=== PATIENT | male | born 1935 | race Caucasian/White ===

== ENCOUNTER → 2019-12-22 15:48 | Outpatient (BNVA) | payer MEDICARE, OTHER, SELFPAY | PROVIDERS: Family Provider Nurse Practitioner; PCP Nurse Practitioner; Visit Provider Nurse Practitioner | DX: E11.65 Type 2 diabetes mellitus with hyperglycemia (principal); M54.5 Low back pain | CPT/HCPCS: 80053; 81003; 83036 ==

== ENCOUNTER → 2019-12-30 11:17 | Outpatient (BNVA) | payer MEDICARE, OTHER, SELFPAY | PROVIDERS: Family Provider Nurse Practitioner; PCP Nurse Practitioner; Visit Provider Nurse Practitioner | DX: E11.65 Type 2 diabetes mellitus with hyperglycemia (principal); F03.90 Unspecified dementia, unspecified severity, without behavioral disturbance, psychotic disturbance, mood disturbance, and anxiety; R10.9 Unspecified abdominal pain; M54.5 Low back pain; M43.26 Fusion of spine, lumbar region; M43.24 Fusion of spine, thoracic region; Z79.4 Long term (current) use of insulin | CPT/HCPCS: 72100; 74018 ==

== ENCOUNTER → 2020-03-16 13:53 | Outpatient (BNVA) | payer MEDICARE, OTHER, SELFPAY | PROVIDERS: Family Provider Nurse Practitioner; PCP Nurse Practitioner; Visit Provider Nurse Practitioner | DX: M25.562 Pain in left knee (principal); E11.65 Type 2 diabetes mellitus with hyperglycemia; M17.12 Unilateral primary osteoarthritis, left knee; M11.262 Other chondrocalcinosis, left knee | CPT/HCPCS: 73562; 80053; 80061; 81000; 82044; 83036 ==

== ENCOUNTER 2020-04-11 14:00 | Emergency (ER) | payer MEDICARE, OTHER, SELFPAY ==
[2020-04-11 14:16] VITALS: BP 166/81; PULSE 61; RESP 18; TEMP 36.6; O2SAT 95; BMI 26.2
--- NOTE | 2020-04-11 14:21 | PC.NURSE ---
Patient reports having family of a million ants in the house . I think they are crawling into my throat and down into my stomach. Patient states these are flying ants.
--- NOTE | 2020-04-11 14:28 | ED_ITS ---
HPI - Male Genitourinary General: Chief complaint: Urogenital-Male Stated complaint: difficulty urinating Time Seen by Provider: 04/11/20 14:23 History of Present Illness: HPI Narrative: Patient complains about increasing problems with urination over the last week or so. Been bad the last 2 days has a hard time getting his urine started it emmanuel when he urinates denies any fever chills bowel problems was seen at their clinic a week ago MD Complaint: dysuria Onset (ago): day(s) Duration: progressively worsening Quality: burning Relieving factors: none Exacerbating factors: urination Associated symptoms: Reports no associated symptoms and dysuria; Deny nausea or vomiting Review of Systems Const: Denies: fever(s), chills or body aches Eyes: Denies: change in vision or blurry vision ENMT: Denies: throat pain or nasal congestion Card: Denies: chest pain or dyspnea on exertion Resp: Denies: dyspnea, productive cough or non-productive cough GI: Denies: abdominal pain, nausea or vomiting : Reports: difficulty urinating, dysuria, urinary urgency and difficulty starting urination Musc: Denies: extremity pain Skin/Breast: Denies: rash Neuro: Denies: headache(s) Psych: Denies: anxiety or depression Jonathan/Lymph: Denies: easy bruising PFSH ED PFSH: Medical History (Updated 03/27/20 @ 13:48 by ENZO Grayson) Anticoagulant long-term use Benign essential hypertension with target blood pressure below 140/90 Chronic dementia Deep vein thrombosis (DVT) History of humerus fracture 08/04/2018 Dr. Rubio, again September 2019 in [place], [place] Surgical History History of cholecystectomy 12/30/17 History of colonoscopy History of corneal transplant 2012 Right Presence of cornea transplant RIGHT EYE: 2011 S/P trigger finger release LEFT RING FINGER 12/03/14 Family History Sister Diabetes Family/Other Dementia Social History Smoking and tobacco status: never smoked Second hand smoke exposure: No Smoking risk assessment/counseling performed?: No Alcohol intake: never Desire information about alcohol rehabilitation?: No Counseling given: No Desire information about substance/drug rehabilitation?: No Counseling given: No Adopted: No Caregiver/support person: No Lives independently: Yes Household members: spouse Housing: House Marital status: Number of children: 1 service: No Current occupational status: retired Current occupational exposures/hazards: No Pets and animals: Yes Pets & animals: dog(s) History of recent travel: No Current gender identity: Female Physical Exam Const: COMMON NORMALS: no acute distress, average body habitus and patient oriented x3 HENMT: COMMON NORMALS: normocephalic HEAD & SCALP: normal to inspection and normocephalic FACE & SINUS: normal facial exam Eye: COMMON NORMALS: conjunctivae normal GENERAL EYE: appearance normal, both eyes and all related structures CONJUNCTIVA: Yes conjunctivae normal Neck/C-Spine: COMMON NORMALS: no JVD Chest: COMMONS NORMALS: normal inspection of the chest Resp: COMMON NORMALS: normal respiratory effort and clear to auscultation bilaterally AUSCULTATION: clear to auscultation bilaterally Cardio: COMMON NORMALS: no JVD, regular rate and regular rhythm RATE: regular rate RHYTHM: regular rhythm GI: COMMON NORMALS: Normal to inspection, nondistended, normoactive bowel sounds present Extremity: COMMON NORMALS: normal to inspection and full ROM Neuro: COMMON NORMALS: patient oriented x3 Course Vital Signs: Vital signs: Vital Signs Temperature 97.9 F 04/11/20 14:16 Pulse Rate 61 04/11/20 14:16 Respiratory Rate 18 04/11/20 14:16 Blood Pressure 166/81 04/11/20 14:16 Pulse Oximetry 95 04/11/20 14:16 Discharge Plan Discharge Prescriptions: No Action Calmoseptine 0.44-20.6 % ointment 1 applic TOPICAL QID PRNRF: 0 docusate sodium [Colace] 100 mg capsule 100 mg PO DAILY RF: 0 mupirocin 2 % ointment kit 1 applic TOPICAL BID RF: 0 metoprolol tartrate 50 mg tablet 50 mg PO BID Qty: 60 RF: 2 triamcinolone acetonide 0.1 % cream 1 applic TOPICAL BID PRN (Reason: itching) Qty: 30 RF: 2 Levemir FlexTouch U-100 Insuln 100 unit/mL (3 mL) insulin pen 55 unit SUBCUT .MORNING Qty: 15 RF: 2 (DME) blood sugar diagnostic [True Metrix Glucose Test Strip] Strip See Rx Instructions .ROUTE .MEDSUPPLY Qty: 100 RF: 5 warfarin [Coumadin] 1 mg tablet 2.5 mg PO .6 DAYS Qty: 75 RF: 0 warfarin [Coumadin] 5 mg tablet 5 mg PO DAILY Qty: 30 RF: 0 Coding Level of Care Code ED Commercial Construction Estimator for Laly Jaramillo
[2020-04-11 14:50] VITALS: PULSE 61; O2SAT 95
[2020-04-11 15:14] LABS: Glucose Urine UA Norm (Normal); Protein Urine Neg (Negative); Specific Gravity, Urine 1.025 (1.005-1.030); Urine Appearance SL Hazy (CLEAR); Urine Color Yellow (Yellow); pH Urine 5 (5-7)
[2020-04-11 15:15] LABS: Add Urine Microscopic? YES; Bilirubin Urine Neg (NEGATIVE); Blood Urine 2+ (Negative); Ketones Urine Negative (Negative); Leukocyte Esterase Urine Negative (Negative); Nitrate Urine Negative (Negative); Urobilinogen Urine Norm (Negative)
[2020-04-11 15:26] LABS: Squamous Epithelial Cell Urine 0-4 (0-5); WBC Urine 15-25 /hpf (0-5)
[2020-04-11 15:27] LABS: Add Urine Culture? Yes; Bacteria Urine 1+
[2020-04-11 15:35] VITALS: BP 155/80; PULSE 66; RESP 18; O2SAT 95
== END 2020-04-11 15:35 | disposition home or self-care (01) ==
PROVIDERS: Emergency Provider Nurse Practitioner Family; PCP Nurse Practitioner
DX: R39.198 Other difficulties with micturition (principal); Z79.01 Long term (current) use of anticoagulants; Z79.4 Long term (current) use of insulin; I10 Essential (primary) hypertension; F03.90 Unspecified dementia, unspecified severity, without behavioral disturbance, psychotic disturbance, mood disturbance, and anxiety
CPT/HCPCS: 12345; 51701; 81001; 87086; 99282; 99283

== ENCOUNTER → 2020-04-15 12:07 | Outpatient (BNVA) | payer MEDICARE, OTHER, SELFPAY | PROVIDERS: PCP Nurse Practitioner; Visit Provider Nurse Practitioner | DX: R39.11 Hesitancy of micturition (principal); I10 Essential (primary) hypertension | CPT/HCPCS: 81000 ==

== ENCOUNTER → 2020-06-10 11:36 | Outpatient (BNVA) | payer MEDICARE, OTHER, SELFPAY | PROVIDERS: PCP Nurse Practitioner; Visit Provider Nurse Practitioner | DX: E11.65 Type 2 diabetes mellitus with hyperglycemia (principal); Z79.01 Long term (current) use of anticoagulants; I10 Essential (primary) hypertension; R39.11 Hesitancy of micturition; B35.3 Tinea pedis | CPT/HCPCS: 80053; 80061; 81003; 83036; 85025 ==

== ENCOUNTER 2020-07-19 09:19 | Emergency (ER) | payer MEDICARE, OTHER, SELFPAY ==
[2020-07-19 09:31] VITALS: BP 119/64; PULSE 59; RESP 16; TEMP 36.6; O2SAT 99; BMI 26.6
--- NOTE | 2020-07-19 09:55 | ED_ITS ---
HPI - Male Genitourinary General: Chief complaint: Urogenital-Male Stated complaint: urination issues Time Seen by Provider: 07/19/20 09:34 Source: patient Mode of arrival: ambulatory Limitations: no limitations History of Present Illness: HPI Narrative: Patient is an 84-year-old male who presents to ED today with a complaint of difficulty with urination. Patient tells me it is becoming increasingly difficult to urinate. He states starting around 11 PM yesterday he began feeling a strong urge to urinate however when he would go to the restroom, he would just dribble. Patient states he had to use the restroom 8 or 9 times to feel like he got his bladder empty. He has been noticing increased nocturnal urination. Patient was seen for this recently by his PCP who placed him on Flomax. Patient has never had any form of urological evaluation. states she believes patient was diagnosed with an enlarged prostate at some point. Patient does complain of slight dysuria. He is not having any abdominal pain, flank pain currently. No fevers. MD Complaint: other (urinary retention) Associated symptoms: Reports dysuria; Deny hematuria, nausea or vomiting Review of Systems Const: Denies: fever(s), chills, body aches, fatigue or malaise Card: Denies: chest pain Resp: Denies: dyspnea GI: Denies: abdominal pain, nausea, vomiting or diarrhea : Reports: difficulty urinating, dysuria, urinary frequency, urinary urgency, urinary dribbling, difficulty starting urination, change in urine stream (dribbling) and nocturia; Denies: flank pain, oliguria, hematuria, genital pain, genital lesions, penile discharge, testicular pain, testicular mass or scrotal swelling Musc: Denies: neck pain or back pain Skin/Breast: Denies: rash Neuro: Denies: headache(s), numbness in extremities, weakness in extremities or sensory changes PFSH ED PFSH: Medical History (Updated 07/19/20 @ 11:44 by EMI Brewster) Anticoagulant long-term use Benign essential hypertension with target blood pressure below 140/90 Chronic dementia Deep vein thrombosis (DVT) History of humerus fracture 08/04/2018 Dr. Rubio, again September 2019 in [place], [place] Surgical History History of cholecystectomy 12/30/17 History of colonoscopy History of corneal transplant 2012 Right Presence of cornea transplant RIGHT EYE: 2011 S/P trigger finger release LEFT RING FINGER 12/03/14 Family History Sister Diabetes Family/Other Dementia Social History Smoking and tobacco status: never smoked Second hand smoke exposure: No Smoking risk assessment/counseling performed?: No Alcohol intake: never Desire information about alcohol rehabilitation?: No Counseling given: No Desire information about substance/drug rehabilitation?: No Counseling given: No Adopted: No Caregiver/support person: No Lives independently: Yes Household members: spouse Housing: House Marital status: Number of children: 1 service: No Current occupational status: retired Current occupational exposures/hazards: No Pets and animals: Yes Pets & animals: dog(s) History of recent travel: No Current gender identity: Female Physical Exam Const: COMMON NORMALS: no acute distress, average body habitus, patient oriented x3, no limitations, healthy appearing, alert and well nourished GI: COMMON NORMALS: Normal to inspection, nondistended, normoactive bowel sounds present, Soft to palpation, non-tender, No hepatosplenomegaly present and no masses PALPATION: Yes Soft to palpation and Yes No hepatosplenomegaly present : COMMON NORMALS: Yes no CVA tenderness BLADDER/KIDNEY EXAM: Yes no CVA tenderness PENIS: normal penis MEATUS: stenotic SCROTUM: Yes testes descended bilaterally TESTES: Yes testicular lie normal Back/Pelvis: COMMON NORMALS: no CVA tenderness Extremity: COMMON NORMALS: capillary refill normal, no clubbing, cyanosis or edema, no calf tenderness and no pedal edema Neuro: COMMON NORMALS: patient oriented x3 SENSORIUM/ORIENTATION: Yes alert Skin: COMMON NORMALS: no rashes or lesions noted GENERAL SKIN EXAM: no rashes or lesions noted Course ED course: 350-400cc urine noted via bladder scanner Vital Signs: Vital signs: Vital Signs Temperature 97.8 F 07/19/20 09:31 Pulse Rate 59 L 07/19/20 11:53 Respiratory Rate 16 07/19/20 11:53 Blood Pressure 127/74 07/19/20 11:53 Pulse Oximetry 98 07/19/20 11:53 MDM - Male MDM Narrative: Medical decision making narrative: RN could only get extremely small catheter through pts meatus to drain urine raising the suspicion for urethral meatus stenosis/stricture as a cause of his difficulty with urination; pt adamantly refuses to go home with the connolly; he is able to urinate on his own-it just takes him several times to feel like he is emptying; symptoms to prompt a return to ED evaluation were discussed; CM is working on getting him set up with an appointment with Dr. Liang Lab Data: Labs: Lab Results 07/19/20 07/19/20 07/19/20 Range/Units 10:44 10:44 11:06 WBC 10.4 H (4.0-10.0) 10^3/ uL RBC 4.72 (4.1-5.3) 10^6/u L Hgb 14.8 (11.7-16.6) g/dL Hct 44.5 (42.0-52.0) % MCV 94.3 H (80-94) fL MCH 31.4 (28.0-34.0) pg MCHC 33.3 (30.0-36.0) g/dL RDW 12.8 (12.1-15.1) % Plt Count 199 (130-400) 10^3/c mm MPV 9.8 (7.4-10.4) fL Neut % (Auto) 73.4 % Lymph % (Auto) 14.2 % Power % (Auto) 9.0 % Eos % (Auto) 2.5 % Baso % (Auto) 0.4 % Neut # (Auto) 7.66 (1.8-7.7) 10^3/u L Lymph # (Auto) 1.5 (0.8-4.8) 10^3/u L Power # (Auto) 0.9 (0.2-0.9) 10^3/u L Eos # (Auto) 0.3 (0.0-0.8) 10^3/u L Baso # (Auto) 0.0 (0.0-0.1) 10^3/u L Nucleated RBC % (a uto) 0 % Nucleated RBCs # 0.0 /100WBC Sodium 140 (136-145) mmol/L Potassium 4.7 (3.5-5.1) mmol/L Chloride 108 H (98-107) mmol/L Carbon Dioxide 27 (22-29) mmol/L Anion Gap 9.7 (5-19) BUN 19 (8-23) mg/dL Creatinine 0.9 (0.7-1.2) mg/dL GFR Calculation Not Reportable Glucose 152 H (65-115) mg/dL Calculated Osmolal ity 289 (285-295) mOsm/k g Calcium 8.5 (8.5-10.5) mg/dL Total Bilirubin 1.1 (0.15-1.2) mg/dL AST 14 (0-40) U/L ALT 17 (0-41) U/L Alkaline Phosphata se 89 (40-130) IU/L Total Protein 6.3 L (6.6-8.7) g/dL Albumin 3.4 L (3.5-5.2) g/dL Globulin 2.9 (1.3-4.6) g/dL Urine Color Yellow (Yellow) Urine Appearance Sl hazy (CLEAR) Urine pH 5 (5-7) Ur Specific Gravit y 1.020 (1.005-1.030) Urine Protein Neg (Negative) Urine Glucose (UA) Norm (Normal) Urine Ketones Negative (Negative) Urine Blood Neg (Negative) Urine Nitrate Negative (Negative) Urine Bilirubin Neg (NEGATIVE) Urine Urobilinogen Neg (Negative) mg/dL Ur Leukocyte Dorene ase Trace H (Negative) Urine RBC 0-4 H (0-2) /hpf Urine WBC 5-10 H (0-5) /hpf Ur Squamous Epith Cells 0-4 H (0-5) Amorphous Sediment 2+ Urine Bacteria Trace (NONE) Hyaline Casts 0-4 H Urine Mucus 1+ Discharge Plan Discharge Patient Disposition: Home Clinical Impression: Difficulty urinating Condition: Stable Prescriptions: No Action Calmoseptine 0.44-20.6 % ointment 1 applic TOPICAL QID PRNRF: 0 ciprofloxacin HCl [Cipro] 250 mg tablet 250 mg PO BID Qty: 20 RF: 0 Lamisil (Aerosol) 1 % aerosol,spray 1 spray TOPICAL DAILY Qty: 125 RF: 0 docusate sodium [Colace] 100 mg capsule 100 mg PO DAILY RF: 0 mupirocin 2 % ointment kit 1 applic TOPICAL BID RF: 0 terbinafine HCl 250 mg tablet 250 mg PO DAILY Qty: 14 RF: 0 Levemir FlexTouch U-100 Insuln 100 unit/mL (3 mL) insulin pen See Rx Instructions SUBCUT BID Qty: 15 RF: 2 metoprolol tartrate 50 mg tablet 25 mg PO BID Qty: 30 RF: 2 Flomax 0.4 mg capsule 0.4 mg PO DAILY Qty: 30 RF: 2 warfarin [Coumadin] 5 mg tablet 5 mg PO DAILY Qty: 30 RF: 0 warfarin [Coumadin] 1 mg tablet 2.5 mg PO .6 DAYS Qty: 75 RF: 0 triamcinolone acetonide 0.1 % cream 1 applic TOPICAL BID PRN (Reason: itching) Qty: 30 RF: 2 (DME) blood sugar diagnostic [True Metrix Glucose Test Strip] Strip See Rx Instructions .ROUTE .MEDSUPPLY Qty: 100 RF: 5 Discharge Orders: Discharge Order (Routine); Ordered 07/19/20 Ordered By: Zulma Crawford Referrals: Vasile Gentile FNP-C [Primary Care Provider] - Kenton Liang MD [Physician] - Activity Restrictions/Additional Instructions: You have refused to go home with a Connolly catheter today. You will need to return to the emergency department if you are no longer able to void/urinate on your own or if you begin having severe lower abdominal pain/pressure, or fevers greater than 100.4. As discussed we will get you set up with an appointment to see Dr. Liang/urology for further evaluation. Discharge Date/Time: 07/19/20 11:53 Coding Level of Care Code ED International Editorial Producer for Kettyg Fwd Exam Detailed
[2020-07-19 10:59] LABS: Basophils % 0.4 %; Eosinophils # 0.3 10^3/uL (0.0-0.8); Eosinophils % 2.5 %; Hematocrit 44.5 % (42.0-52.0); Hemoglobin 14.8 g/dL (11.7-16.6); Lymphocytes # 1.5 10^3/uL (0.8-4.8); Lymphocytes % 14.2 %; Mean Corpuscular HGB Conc 33.3 g/dL (30.0-36.0); Mean Corpuscular Hemoglobin 31.4 pg (28.0-34.0); Mean Corpuscular Volume 94.3 fL (80-94); Mean Platelet Volume 9.8 fL (7.4-10.4); Monocytes # 0.9 10^3/uL (0.2-0.9); Neutrophils # 7.66 10^3/uL (1.8-7.7); Neutrophils % 73.4 %; Nucleated Red Blood Cells % 0 %; Platelet Count 199 10^3/cmm (130-400); Red Blood Count 4.72 10^6/uL (4.1-5.3); Red Cell Distribution Width 12.8 % (12.1-15.1); White Blood Count 10.4 10^3/uL (4.0-10.0)
[2020-07-19 11:19] LABS: Alanine Aminotransferase 17 U/L (0-41); Albumin Level 3.4 g/dL (3.5-5.2); Alkaline Phosphatase 89 IU/L (40-130); Anion Gap 9.7 (5-19); Aspartate Amino Transferase 14 U/L (0-40); Blood Urea Nitrogen 19 mg/dL (8-23); Calcium 8.5 mg/dL (8.5-10.5); Carbon Dioxide 27 mmol/L (22-29); Chloride 108 mmol/L (98-107); Creatinine Clr Calc Pharmacy 66.0415; Globulin 2.9 g/dL (1.3-4.6); Glucose 152 mg/dL (65-115); Osmolality Calculated 289 mOsm/kg (285-295); Potassium 4.7 mmol/L (3.5-5.1); Sodium 140 mmol/L (136-145); Total Bilirubin 1.1 mg/dL (0.15-1.2); Total Protein 6.3 g/dL (6.6-8.7)
[2020-07-19 11:30] LABS: Add Urine Culture? No; Add Urine Microscopic? YES; Amorphous Sediment Urine 2+; Bacteria Urine TRACE; Bilirubin Urine Neg (NEGATIVE); Blood Urine Neg (Negative); Glucose Urine UA Norm (Normal); Hyaline Casts Urine 0-4; Ketones Urine Negative (Negative); Leukocyte Esterase Urine Trace (Negative); Mucus Urine 1+; Nitrate Urine Negative (Negative); Protein Urine Neg (Negative); RBC Urine 0-4 /hpf (0-2); Squamous Epithelial Cell Urine 0-4 (0-5); Urine Appearance SL Hazy (CLEAR); Urine Color Yellow (Yellow); Urobilinogen Urine Neg (Negative); pH Urine 5 (5-7)
--- NOTE | 2020-07-19 11:50 | DCPLANNER ---
manager bench had message to schedule a follow up appointment for patient with Dr. Liang. manager bench called the office of Dr. Liang, spoke with Radha. manager bench gave clinic patients information, pillowcase cutter was told that patients information would be printed and reviewed. Clinic will call patient with appointment information.
[2020-07-19 11:53] VITALS: BP 127/74; PULSE 59; RESP 16; O2SAT 98
== END 2020-07-19 11:53 | disposition home or self-care (01) ==
PROVIDERS: Emergency Provider Physician Assistant; PCP Nurse Practitioner
DX: R39.198 Other difficulties with micturition (principal); Z79.01 Long term (current) use of anticoagulants; Z79.4 Long term (current) use of insulin; I10 Essential (primary) hypertension
CPT/HCPCS: 12345; 36415; 51702; 80053; 81001; 85025; 99283

== ENCOUNTER → 2020-07-29 12:46 | Outpatient (BNVA) | payer MEDICARE, OTHER, SELFPAY | PROVIDERS: PCP Nurse Practitioner; Visit Provider Urology | DX: N47.1 Phimosis (principal) | CPT/HCPCS: 88305 ==

== ENCOUNTER → 2020-08-30 11:11 | Outpatient (BNVA) | payer MEDICARE, OTHER, SELFPAY | PROVIDERS: PCP Nurse Practitioner; Visit Provider Nurse Practitioner | DX: E11.65 Type 2 diabetes mellitus with hyperglycemia (principal); Z79.01 Long term (current) use of anticoagulants; F03.91 Unspecified dementia, unspecified severity, with behavioral disturbance; I10 Essential (primary) hypertension | CPT/HCPCS: 80053; 80061; 83036; 84443 ==

== ENCOUNTER → 2020-11-29 13:45 | Outpatient (BNVA) | payer MEDICARE, OTHER, SELFPAY | PROVIDERS: PCP Nurse Practitioner; Visit Provider Nurse Practitioner | DX: E11.65 Type 2 diabetes mellitus with hyperglycemia (principal); I10 Essential (primary) hypertension; F03.91 Unspecified dementia, unspecified severity, with behavioral disturbance; R39.11 Hesitancy of micturition; Z79.01 Long term (current) use of anticoagulants | CPT/HCPCS: 80053; 83036 ==

== ENCOUNTER → 2021-02-17 10:21 | Outpatient (BNVA) | payer MEDICARE, OTHER, SELFPAY | PROVIDERS: PCP Nurse Practitioner; Visit Provider Nurse Practitioner | DX: E11.65 Type 2 diabetes mellitus with hyperglycemia (principal); Z79.01 Long term (current) use of anticoagulants; F03.91 Unspecified dementia, unspecified severity, with behavioral disturbance; I10 Essential (primary) hypertension; R39.11 Hesitancy of micturition; E11.42 Type 2 diabetes mellitus with diabetic polyneuropathy | CPT/HCPCS: 80053; 80061; 82043; 82607; 83036; 84443; 85025 ==

== ENCOUNTER → 2021-05-15 11:04 | Outpatient (BNVA) | payer MEDICARE, OTHER, SELFPAY | PROVIDERS: PCP Nurse Practitioner; Visit Provider Nurse Practitioner | DX: F03.91 Unspecified dementia, unspecified severity, with behavioral disturbance (principal); I10 Essential (primary) hypertension; R39.11 Hesitancy of micturition; E11.65 Type 2 diabetes mellitus with hyperglycemia; E55.9 Vitamin D deficiency, unspecified; Z79.01 Long term (current) use of anticoagulants; R82.90 Unspecified abnormal findings in urine | CPT/HCPCS: 80053; 80061; 81000; 82043; 82306; 82607; 83036; 84443; 85025; 87086 ==

== ENCOUNTER → 2021-06-07 14:07 | Outpatient (BNVA) | payer MEDICARE, OTHER, SELFPAY | PROVIDERS: PCP Nurse Practitioner; Visit Provider Nurse Practitioner | DX: E11.65 Type 2 diabetes mellitus with hyperglycemia (principal); R39.11 Hesitancy of micturition | CPT/HCPCS: 81000 ==

== ENCOUNTER → 2021-06-08 14:22 | Outpatient (BNVA) | payer MEDICARE, OTHER, SELFPAY | PROVIDERS: PCP Nurse Practitioner; Visit Provider Nurse Practitioner | DX: R41.0 Disorientation, unspecified (principal); F03.91 Unspecified dementia, unspecified severity, with behavioral disturbance; G47.9 Sleep disorder, unspecified | CPT/HCPCS: 81000 ==

== ENCOUNTER 2021-08-01 08:57 | Emergency (ER) | payer MEDICARE, OTHER, SELFPAY ==
[2021-08-01 10:26] VITALS: BP 95/61; PULSE 108; RESP 18; TEMP 36.6; O2SAT 96; BMI 27.3
[2021-08-01 11:02] VITALS: BP 118/78; RESP 16
--- NOTE | 2021-08-01 11:23 | PC.NURSE ---
Assumed care of this patient at 1105.
--- NOTE | 2021-08-01 12:35 | CT_ITS ---
WS: [id number] CT CHEST, ABDOMEN AND PELVIS WITH CONTRAST. HISTORY: large R ecchymosis/distention; recent fall/trauma TECHNIQUE: Contiguous 5 mm axial imaging performed through the chest, abdomen and pelvis with IV cont rast, oral contrast has not been provided. Coronal and sagittal reformats chest. Coronal and sagittal reformats through the abdomen and pelvis. All CT scans at [facility] use at least one of the se dose optimization techniques: automated exposure control; mA and/or kV adjustment per patient size (includes targeted exams where dose is matched to clinical indication); or iterative reconstruction. CONTRAST: Visipaque 320; 95 mL IV. DLP: 1730.24 mGy.cm COMPARISON: Chest CT 05/04/[address]: Noncalcified 5 mm nodule at the lingula is stable. Additional stable nodules in the LEFT lo wer lung field. No pneumothorax or pulmonary contusion. No pleural effusion. Mild atherosclerosis ao rta. Normal size pulmonary artery. Heart is normal. Moderate coronary artery calcifications. No adeno javed. Bones are osteopenic. Age-indeterminate rib fractures are noted on the RIGHT. These appear to be remote rib fractures. Abdomen CT: Liver and spleen and pancreas are intact. Pancreatic atrophy is moderate. Prior cholecyst ectomy. No adrenal mass. Large complex cyst in the RIGHT kidney. Partial calcification is noted withi n the wall of the cyst measuring up to 6 cm. No renal obstruction. Mild atherosclerosis aorta. No ret roperitoneal or peritoneal hematoma. There is a large soft tissue hematoma centered along the RIGHT l ateral abdominal wall extending into the pelvis. Hematoma measures 9.0 x 5.0 cm there is adjacent sof t tissue stranding extending above and below the mean component of the hematoma. Pelvic CT: No free fluid or adenopathy. Prior RIGHT hip ORIF. No new acute fracture is identified. No acute appearing lumbar fracture. CT/CT chest abd pel w con* IMPRESSION: 1. Large acute RIGHT lateral abdominal wall hematoma. 2. No visceral organ injury. No intraperitoneal or retroperitoneal hematoma or fluid. 3. No pneumothorax. 4. Age-indeterminate but likely remote right-sided rib fractures.
--- NOTE | 2021-08-01 12:35 | CT_ITS ---
WS: [id number] CT LUMBAR SPINE TECHNIQUE: Noncontrast CT of the lumbar spine with coronal and sagittal reformatted images. CLINICAL INFORMATION: trauma COMPARISON: None. DLP: 1878.[address] scans at [facility] use at least one of these dose optimization techniques: automated e xposure control; mA and/or kV adjustment per patient size (includes targeted exams where dose is matc hed to clinical indication); or iterative reconstruction. FINDINGS: Mild lumbar curve. No acute compression. Moderate spondylitic changes. Disc space narrowing worse at L5-S1. Hypertrophic changes sacroiliac joints. No visualized fractures. Partially visualized peripher ally calcified right renal cyst. Normal adrenal glands. L1-L2: Normal. L2-L3: Mild disc bulging and osteophytic ridging. Mild central canal stenosis. Mild left greater than right foraminal narrowing. Moderate facet arthropathy with ligamentum flavum hypertrophy. L3-L4: Mild disc bulging with osteophytic ridging. Mild central canal stenosis. Mild right greater th an left foraminal narrowing with moderate facet arthropathy and ligamentum flavum hypertrophy. L4-L5: Mild disc bulging with moderate central canal stenosis. Moderate facet arthropathy with ligame ntum flavum hypertrophy. Mild right foraminal narrowing. L5-S1: Mild disc osteophyte complex with endplate ridging. Mild central canal stenosis. Slight imping ement traversing S1 nerve roots. Tiny shallow central protrusion. Mild to moderate bilateral foramina l narrowing. Moderate facet arthropathy. Visualized pelvic bony structures: Normal. Paravertebral soft tissues: Normal. CT/CT lumbar spine wo con* [id number] IMPRESSION: 1. Mild lumbar curve. Moderate spondylitic changes. No acute fractures. 2. Mild ankylosis lower thoracic spine. 3. Mild to moderate central canal stenosis L2-L3 L3-L4 and L4-L5, worse L4-5. 4. Mild to moderate bony foraminal narrowing described above.
--- NOTE | 2021-08-01 12:35 | CT_ITS ---
WS: [id number] CT THORACIC SPINE TECHNIQUE: Noncontrast CT of the thoracic spine with coronal and sagittal reformatted images. CLINICAL INFORMATION: trauma COMPARISON: None. DLP: 2841.[address] scans at [facility] use at least one of these dose optimization techniques: automated e xposure control; mA and/or kV adjustment per patient size (includes targeted exams where dose is matc hed to clinical indication); or iterative reconstruction. FINDINGS: Moderate thoracic kyphosis. Hypertrophic changes thoracic spine. Thoracic ankylosis. No acute appeari ng compression fractures. Moderate facet arthropathy lower thoracic spine. No high-grade central cailin l stenosis. Partially calcified right renal cyst measuring 5.1 x 4.8 cm. Adrenal glands are normal. Cholecystecto my clips. Bibasilar atelectasis. A few partially visualized noncalcified nodules in the left upper lo be and left lower lobe measuring 5 to 6 mm. Fibrosis in the lung apices. Small esophageal hiatal priscila ia. Adrenal glands are normal. Coronary calcification. CT/CT thoracic spin wo con* [id number] IMPRESSION: 1. Moderate thoracic kyphosis with ankylosis. Mild thoracic curve. 2. Moderate spondylitic changes. Anterior hypertrophic changes thoracic spine. 3. No acute fractures.
--- NOTE | 2021-08-01 12:36 | ED_ITS ---
Documented by User: EMI Brewster 08/01/21 14:50 HPI - Fall General: Chief Complaint: Fall Stated Complaint: laceration on back Time Seen by Provider: 08/01/21 10:58 Source: patient and family () Mode of arrival: wheelchair Limitations: no limitations History of Present Illness: HPI Narrative: Patient is a nice 85-year-old male who presents to ED today following several falls that have occurred over the past week. Patient and states that he often falls secondary to imbalance. He is supposed to be walking with assistance at all times. states he fell once last week and twice on Saturday. She states one of his falls on Saturday he struck his right side on a metal trash can and sustained a laceration/abrasion. States area has bruised significantly. Patient is not having any complaints of palpitations, chest pain, shortness of breath, difficulty breathing. Patient is on warfarin. Last INR was checked on Saturday and was 3.0. MD complaint: fall Onset (ago): day(s) Fall from: standing Fall witnessed: yes, by family Place fall occurred: home Loss of consciousness: None Prolonged down time: no Symptoms prior to fall: none Context: other (lost balance ) Associated symptoms-after fall: Reports abdominal pain (R side abdomen); Denies chest pain, hematuria, lightheadedness or neck pain Review of Systems Const: Denies: fever(s), chills, body aches, fatigue or malaise Eyes: Denies: change in vision Card: Denies: chest pain, palpitations, irregular heart rhythm, edema, lightheadedness, syncope, pre-syncope or dyspnea on exertion Resp: Denies: dyspnea GI: Reports: abdominal pain (R side abdomen); Denies: vomiting or diarrhea : Denies: flank pain, dysuria or hematuria Musc: Denies: neck pain, back pain, extremity pain, extremity swelling, joint pain or joint swelling PFS ED PFSH: Medical History (Updated 08/01/21 @ 14:47 by EMI Brewster) Anticoagulant long-term use Benign essential hypertension with target blood pressure below 140/90 Deep vein thrombosis (DVT) History of humerus fracture 08/04/2018 Dr. Rubio, again September [address] [facility] Surgical History History of cholecystectomy 12/30/17 History of circumcision July 2020 History of colonoscopy History of corneal transplant 2011 Right Presence of cornea transplant RIGHT EYE: 2011 S/P trigger finger release LEFT RING FINGER 12/03/14 Family History Sister Diabetes Family/Other Dementia Social History Smoking and tobacco status: never smoked Second hand smoke exposure: No Smoking risk assessment/counseling performed?: No Alcohol intake: never Desire information about alcohol rehabilitation?: No Counseling given: No Desire information about substance/drug rehabilitation?: No Counseling given: No Adopted: No Caregiver/support person: No Lives independently: Yes Household members: spouse Housing: House Marital status: Number of children: 1 service: No Current occupational status: retired Current occupational exposures/hazards: No Pets and animals: Yes Pets & animals: dog(s) History of recent travel: No Current gender identity: Female Physical Exam Const: COMMON NORMALS: no acute distress, average body habitus, patient oriented x3, no limitations, healthy appearing, alert and well nourished GENERAL APPEARANCE: cooperative ORIENTATION/CONSCIOUSNESS: Yes awake, Yes oriented to person, Yes oriented to place and Yes oriented to time HENMT: COMMON NORMALS: normocephalic and atraumatic HEAD & SCALP: normal to inspection, normocephalic and atraumatic Neck/C-Spine: COMMON NORMALS: full ROM CERVICAL SPINE: No pain with cervical ROM and No Cervical spine tenderness Resp: COMMON NORMALS: normal respiratory effort and clear to auscultation bilaterally AUSCULTATION: clear to auscultation bilaterally Cardio: COMMON NORMALS: regular rate and regular rhythm RATE: regular rate RHYTHM: regular rhythm GI: COMMON NORMALS: No hepatosplenomegaly present INSPECTION: Yes abdominal wall ecchymosis AUSCULTATION: Yes normoactive bowel sounds PALPATION: Yes Firmness to palpation present (GI) (on R lateral abdomen) and Yes No hepatosplenomegaly present OTHER: patient has strikingly significant ecchymosis to R lateral abdomen; there is an area directly under his abrasion that feels firm/indurated and most likely associated with underlying hematoma; he has small area to L lower abdomen that has old ecchymosis from diabetic sq injections : COMMON NORMALS: Yes no CVA tenderness BLADDER/KIDNEY EXAM: Yes no CVA tenderness Back/Pelvis: COMMON NORMALS: no CVA tenderness THORACIC SPINE/UPPER BACK: Yes paraspinal muscle tenderness Thoracic paraspinal muscle tenderness: right LUMBAR SPINE/LOWER BACK: Yes lumbar spinal tenderness Lumbar spinal tenderness location: L3 and L4 and Yes paraspinal muscle tenderness Lumbar paraspinal muscle tenderness: right PELVIS: Yes buttocks normal SACROILIAC JOINTS: Yes SI joints normal Extremity: COMMON NORMALS: normal to inspection and full ROM GENERAL: Yes normal exam except as noted Neuro: RICK COMA SCALE: document GCS findings Rick coma scale eye opening: Spontaneous [place] coma scale verbal response: Orientated Rick coma scale motor response: Obey commands [place] coma scale total score: 15 COMMON NORMALS: patient oriented x3, CN's II-XII intact bilaterally, moves all extremities, no focal motor deficits, no sensory deficits noted and gait normal SENSORIUM/ORIENTATION: Yes alert, Yes oriented to person, Yes oriented to place and Yes oriented to time Skin: NARRATIVE SKIN EXAM: see abdomen for pertinent skin findings; abdominal abrasion; no laceration noted Course Vital Signs: Vital signs: Vital Signs Temperature 97.9 F 08/01/21 10:26 Pulse Rate 81 08/01/21 15:02 Respiratory Rate 16 08/01/21 13:49 Blood Pressure 160/88 08/01/21 15:02 Pulse Oximetry 100 08/01/21 15:02 MDM - Fall MDM Narrative: Medical decision making narrative: Patient has a very large 9 x 5 cm abdominal wall hematoma. His vital signs are stable. He has a normal hemoglobin. INR is therapeutic. No evidence for active bleeding. Spoke to Dr. Carcamo who feels patient is stable for discharge. Strict return to ED precautions given. He has appointment with PCP in the next 1-2 weeks for follow up. Needs to return to ED sooner for any further complaints Lab Data: Labs: Lab Results 08/01/21 08/01/21 08/01/21 Range/Units 11:18 11:18 11:18 WBC 12.6 H (4.0-10.0) 10^3/ uL RBC 4.33 (4.1-5.3) 10^6/u L Hgb 13.3 (11.7-16.6) g/dL Hct 40.5 L (42.0-52.0) % MCV 93.5 (80-94) fl MCH 30.7 (28.0-34.0) pg MCHC 32.8 (30.0-36.0) g/dL RDW 13.1 (12.1-15.1) % Plt Count 248 (130-400) 10^3/c mm MPV 10.6 H (7.4-10.4) fL Neut % (Auto) 73.2 % Lymph % (Auto) 13.0 % [place] % (Auto) 10.3 % Eos % (Auto) 2.6 % Baso % (Auto) 0.3 % Neut # (Auto) 9.20 H (1.8-7.7) 10^3/u L Lymph # (Auto) 1.6 (0.8-4.8) 10^3/u L [place] # (Auto) 1.3 H (0.2-0.9) 10^3/u L Eos # (Auto) 0.3 (0.0-0.8) 10^3/u L Baso # (Auto) 0.0 (0.0-0.1) 10^3/u L Nucleated RBC % (a uto) 0 % Nucleated RBCs # 0.0 /100WBC PT 27.30 H (12.1-14.9) SECO NDS INR 2.48 H (0.8-1.2) APTT 41.0 H (23.9-36.7) SECO NDS Sodium 143 (136-145) mmol/L Potassium 4.0 (3.5-5.1) mmol/L Chloride 108 H (98-107) mmol/L Carbon Dioxide 26 (22-29) mmol/L Anion Gap 13.0 (5-19) BUN 14 (8-23) mg/dL Creatinine 0.7 (0.7-1.2) mg/dL GFR Calculation Not Reportable Glucose 103 (65-115) mg/dL Calculated Osmolal ity 297 H (285-295) mOsm/k g Calcium 8.5 (8.5-10.5) mg/dL Total Bilirubin 1.5 H (0.15-1.2) mg/dL AST 16 (0-40) U/L ALT 11 (0-41) U/L Alkaline Phosphata se 110 (40-130) IU/L Total Protein 6.2 L (6.6-8.7) g/dL Albumin 3.3 L (3.5-5.2) g/dL Globulin 2.9 (1.3-4.6) g/dL Imaging Data^: CT lumbar: Radiologist's impression: [facility] [address] [place] [address] CT Scan Report Signed Patient: Malcom Sams Unit #: [id number] : 1935 Age/Sex: 85 / M ADM Date: 08/01/21 Loc: ER Room/Bed: Attending Dr: Ordering Provider/Ordering MD: Zulma Crawford Date of Service: 08/01/21 Procedure(s): CT lumbar spine wo con* [id number] Accession Number(s): [id number] Report Number: [id number] WS: [id number] CT LUMBAR SPINE TECHNIQUE: Noncontrast CT of the lumbar spine with coronal and sagittal reformatted images. CLINICAL INFORMATION: trauma COMPARISON: None. DLP: 1878.[address] scans at [facility] use at least one of these dose optimization techniques: automated exposure control; mA and/or kV adjustment per patient size (includes targeted exams where dose is matched to clinical indication); or iterative reconstruction. FINDINGS: Mild lumbar curve. No acute compression. Moderate spondylitic changes. Disc space narrowing worse at L5-S1. Hypertrophic changes sacroiliac joints. No visualized fractures. Partially visualized peripherally calcified right renal cyst. Normal adrenal glands. L1-L2: Normal. L2-L3: Mild disc bulging and osteophytic ridging. Mild central canal stenosis. Mild left greater than right foraminal narrowing. Moderate facet arthropathy with ligamentum flavum hypertrophy. L3-L4: Mild disc bulging with osteophytic ridging. Mild central canal stenosis. Mild right greater than left foraminal narrowing with moderate facet arthropathy and ligamentum flavum hypertrophy. L4-L5: Mild disc bulging with moderate central canal stenosis. Moderate facet arthropathy with ligamentum flavum hypertrophy. Mild right foraminal narrowing. L5-S1: Mild disc osteophyte complex with endplate ridging. Mild central canal stenosis. Slight impingement traversing S1 nerve roots. Tiny shallow central protrusion. Mild to moderate bilateral foraminal narrowing. Moderate facet arthropathy. Visualized pelvic bony structures: Normal. Paravertebral soft tissues: Normal. CT/CT lumbar spine wo con* [id number] IMPRESSION: 1. Mild lumbar curve. Moderate spondylitic changes. No acute fractures. 2. Mild ankylosis lower thoracic spine. 3. Mild to moderate central canal stenosis L2-L3 L3-L4 and L4-L5, worse L4-5. 4. Mild to moderate bony foraminal narrowing described above. Dictated By: Santos Vitale MD Signed By: Santos Vitale MD Signed Date/Time: 08/01/21 1322 DD/ 1314 CT thoracic: Radiologist's impression: [facility] [address] [address] Scan Report Signed Patient: Malcom Sams Unit #: [id number] : 1935 Age/Sex: 85 / M ADM Date: 08/01/21 Loc: ER Room/Bed: Attending Dr: Ordering Provider/Ordering MD: Zulma Crawford Date of Service: 08/01/21 Procedure(s): CT thoracic spin wo con* [id number] Accession Number(s): [id number] Report Number: [id number] WS: [id number] CT THORACIC SPINE TECHNIQUE: Noncontrast CT of the thoracic spine with coronal and sagittal reformatted images. CLINICAL INFORMATION: trauma COMPARISON: None. DLP: 2841.[address] [facility] use [facility] one of these dose optimization techniques: automated exposure control; mA and/or kV adjustment per patient size (includes targeted exams where dose is matched to clinical indication); or iterative reconstruction. FINDINGS: Moderate thoracic kyphosis. Hypertrophic changes thoracic spine. Thoracic ankylosis. No acute appearing compression fractures. Moderate facet arthropathy lower thoracic spine. No high-grade central canal stenosis. Partially calcified right renal cyst measuring 5.1 x 4.8 cm. Adrenal glands are normal. Cholecystectomy clips. Bibasilar atelectasis. A few partially visualized noncalcified nodules in the left upper lobe and left lower lobe measuring 5 to 6 mm. Fibrosis in the lung apices. Small esophageal hiatal hernia. Adrenal glands are normal. Coronary calcification. CT/CT thoracic spin wo con* [id number] IMPRESSION: 1. Moderate thoracic kyphosis with ankylosis. Mild thoracic curve. 2. Moderate spondylitic changes. Anterior hypertrophic changes thoracic spine. 3. No acute fractures. Dictated By: Santos Vitale MD Signed By: Santos Vitale MD Signed Date/Time: 08/01/21 1331 DD/ 1323 CT chest/abdomen/pelvis: Radiologist's impression: [facility], [place] [address]AN Scan ReportSigned Patient: Malcom Sams #: [id number]: 6Acct#:[id number]/Sex: 85 / MADM Date: 08/01/21Loc: ERRoom/Bed:Attending Dr: Ordering Provider/Ordering MD: Zulma Crawford Date of Service: 08/01/21 Procedure(s): CT chest abd pel w con* Accession Number(s): [id number] Report Number: [id number] WS: [id number] CT CHEST, ABDOMEN AND PELVIS WITH CONTRAST. HISTORY: large R ecchymosis/distention; recent fall/trauma TECHNIQUE: Contiguous 5 mm axial imaging performed through the chest, abdomen and pelvis with IV contrast, oral contrast has not been provided. Coronal and sagittal reformats chest. Coronal and sagittal reformats through the abdomen and pelvis. All CT scans at [facility] use at least one of these dose optimization techniques: automated exposure control; mA and/or kV adjustment per patient size (includes targeted exams where dose is matched to clinical indication); or iterative reconstruction. CONTRAST: Visipaque 320; 95 mL IV. DLP: 1730.24 mGy.cm COMPARISON: Chest CT 05/04/[address]: Noncalcified 5 mm nodule at the lingula is stable. Additional stable nodules in the LEFT lower lung field. No pneumothorax or pulmonary contusion. No pleural effusion. Mild atherosclerosis aorta. Normal size pulmonary artery. Heart is normal. Moderate coronary artery calcifications. No adenopathy. Bones are osteopenic. Age-indeterminate rib fractures are noted on the RIGHT. These appear to be remote rib fractures. Abdomen CT: Liver and spleen and pancreas are intact. Pancreatic atrophy is moderate. Prior cholecystectomy. No adrenal mass. Large complex cyst in the RIGHT kidney. Partial calcification is noted within the wall of the cyst measuring up to 6 cm. No renal obstruction. Mild atherosclerosis aorta. No retroperitoneal or peritoneal hematoma. There is a large soft tissue hematoma centered along the RIGHT lateral abdominal wall extending into the pelvis. Hematoma measures 9.0 x 5.0 cm there is adjacent soft tissue stranding extending above and below the mean component of the hematoma. Pelvic CT: No free fluid or adenopathy. Prior RIGHT hip ORIF. No new acute fracture is identified. No acute appearing lumbar fracture. CT/CT chest abd pel w con* IMPRESSION: 1. Large acute RIGHT lateral abdominal wall hematoma. 2. No visceral organ injury. No intraperitoneal or retroperitoneal hematoma or fluid. 3. No pneumothorax. 4. Age-indeterminate but likely remote right-sided rib fractures. Dictated By:Mague Perez DOSigned By:Mague Perez DOSigned Date/Time:08/01/21 1405DD/ 1356 Discharge Plan Discharge Patient Disposition: Home Clinical Impression: Hematoma of abdominal wall Qualifiers: Encounter type: initial encounter Qualified Code(s): S30.1XXA - Contusion of abdominal wall, initial encounter Condition: Stable Prescriptions: No Action Calmoseptine 0.44-20.6 % ointment 1 applic TOPICAL QID PRN (Reason: UNKNOWN) RF: 0 Lamisil (Aerosol) 1 % aerosol,spray 1 spray TOPICAL DAILY Qty: 125 RF: 0 cetirizine 10 mg capsule 10 mg PO DAILY RF: 0 latanoprost 0.005 % drops 1 drop ophthalmic (eye) DAILY RF: 0 Combigan 0.2-0.5 % drops 1 drop ophthalmic (eye) BID RF: 0 (DME) Diabetic shoes with 3 pairs of inserts See Rx Instructions .Route .MEDSUPPLY Qty: 1 RF: 0 docusate sodium [Colace] 100 mg capsule 100 mg PO BID RF: 0 triamcinolone acetonide 0.1 % cream 1 applic TOPICAL BID PRN (Reason: itching) Qty: 30 RF: 2 warfarin 5 mg tablet 5 mg PO DAILY Qty: 30 RF: 0 (DME) True Metrix Glucose Test Strip Strip See Rx Instructions .ROUTE .MEDSUPPLY Qty: 100 RF: 5 Levemir FlexTouch U-100 Insuln 100 unit/mL (3 mL) insulin pen See Rx Instructions SUBCUT BID Qty: 45 RF: 0 Seroquel 25 mg tablet 25 mg PO BEDTIME RF: 0 Coreg 3.125 mg tablet 3.125 mg PO BEDTIME RF: 0 Flomax 0.4 mg capsule 0.4 mg PO BEDTIME RF: 0 ergocalciferol (vitamin D2) 1,250 mcg (50,000 unit) capsule 1,250 mcg PO Q7D RF: 0 warfarin 1 mg tablet 3 mg PO Q7D RF: 0 Zoloft 50 mg tablet 25 mg PO BID RF: 0 Discharge Orders: Discharge ED (Routine); Ordered 08/01/21 Ordered By: Zulma Crawford Referrals: Vasile Gentile, KARLAC [Primary Care Provider] - Activity Restrictions/Additional Instructions: As we discussed please continue to keep abrasion clean with warm soap and water twice daily and monitor for signs of infection. You need to return to the ED for worsening pain, swelling, lightheadedness, dizziness, passing out episodes, shortness of breath, fevers, or any other concerns you may have. Please follow- up with your PCP at your currently scheduled appointment. Return to the emergency department sooner if needed. Coding Level of Care Code ED Seal Delivery Vehicle Team Technician for Chg Fwd Exam Comprehensive Documented by User: Constantino Carcamo MD 08/03/21 20:37 HPI - Fall General: Chief Complaint: Fall Stated Complaint: laceration on back Time Seen by Provider: 08/01/21 10:58 [facility], [facility] ED PFSH: Medical History (Updated 08/01/21 @ 14:47 by EMI Brewster) Anticoagulant long-term use Benign essential hypertension with target blood pressure below 140/90 Deep vein thrombosis (DVT) History of humerus fracture 08/04/2018 Dr. Rubio, again September 2019 in [facility] [place] Phimosis Surgical History History of cholecystectomy 12/30/17 History of circumcision July 2020 History of colonoscopy History of corneal transplant 2011 Right Presence of cornea transplant RIGHT EYE: 2011 S/P trigger finger release LEFT RING FINGER 12/03/14 Family History Sister Diabetes Family/Other Dementia Social History Smoking and tobacco status: never smoked Second hand smoke exposure: No Smoking risk assessment/counseling performed?: No Alcohol intake: never Desire information about alcohol rehabilitation?: No Counseling given: No Desire information about substance/drug rehabilitation?: No Counseling given: No Adopted: No Caregiver/support person: No Lives independently: Yes Household members: spouse Housing: House Marital status: Number of children: 1 service: No Current occupational status: retired Current occupational exposures/hazards: No Pets and animals: Yes Pets & animals: dog(s) History of recent travel: No Current gender identity: Female Course Vital Signs: Vital signs: Vital Signs Temperature 97.9 F 08/01/21 10:26 Pulse Rate 81 08/01/21 15:02 Respiratory Rate 16 08/01/21 13:49 Blood Pressure 160/88 08/01/21 15:02 Pulse Oximetry 100 08/01/21 15:02 MDM - Fall MDM Narrative: Medical decision making narrative: Case discussed with EMI Brewster. Stable hemoglobin. Normal vitals. No active extrav commented on on CT imaging. Constantino Carcamo MD Emergency Medicine Lab Data: Labs: Lab Results 08/01/21 08/01/21 08/01/21 Range/Units 11:18 11:18 11:18 WBC 12.6 H (4.0-10.0) 10^3/ uL RBC 4.33 (4.1-5.3) 10^6/u L Hgb 13.3 (11.7-16.6) g/dL Hct 40.5 L (42.0-52.0) % MCV 93.5 (80-94) fl MCH 30.7 (28.0-34.0) pg MCHC 32.8 (30.0-36.0) g/dL RDW 13.1 (12.1-15.1) % Plt Count 248 (130-400) 10^3/c mm MPV 10.6 H (7.4-10.4) fL Neut % (Auto) 73.2 % Lymph % (Auto) 13.0 % [place] % (Auto) 10.3 % Eos % (Auto) 2.6 % Baso % (Auto) 0.3 % Neut # (Auto) 9.20 H (1.8-7.7) 10^3/u L Lymph # (Auto) 1.6 (0.8-4.8) 10^3/u L [place] # (Auto) 1.3 H (0.2-0.9) 10^3/u L Eos # (Auto) 0.3 (0.0-0.8) 10^3/u L Baso # (Auto) 0.0 (0.0-0.1) 10^3/u L Nucleated RBC % (a uto) 0 % Nucleated RBCs # 0.0 /100WBC PT 27.30 H (12.1-14.9) SECO NDS INR 2.48 H (0.8-1.2) APTT 41.0 H (23.9-36.7) SECO NDS Sodium 143 (136-145) mmol/L Potassium 4.0 (3.5-5.1) mmol/L Chloride 108 H (98-107) mmol/L Carbon Dioxide 26 (22-29) mmol/L Anion Gap 13.0 (5-19) BUN 14 (8-23) mg/dL Creatinine 0.7 (0.7-1.2) mg/dL GFR Calculation Not Reportable Glucose 103 (65-115) mg/dL Calculated Osmolal ity 297 H (285-295) mOsm/k g Calcium 8.5 (8.5-10.5) mg/dL Total Bilirubin 1.5 H (0.15-1.2) mg/dL AST 16 (0-40) U/L ALT 11 (0-41) U/L Alkaline Phosphata se 110 (40-130) IU/L Total Protein 6.2 L (6.6-8.7) g/dL Albumin 3.3 L (3.5-5.2) g/dL Globulin 2.9 (1.3-4.6) g/dL Discharge Plan Discharge Patient Disposition: Home Clinical Impression: Hematoma of abdominal wall Qualifiers: Encounter type: initial encounter Qualified Code(s): S30.1XXA - Contusion of abdominal wall, initial encounter Condition: Stable Prescriptions: No Action Calmoseptine 0.44-20.6 % ointment 1 applic TOPICAL QID PRN (Reason: UNKNOWN) RF: 0 Lamisil (Aerosol) 1 % aerosol,spray 1 spray TOPICAL DAILY Qty: 125 RF: 0 cetirizine 10 mg capsule 10 mg PO DAILY RF: 0 latanoprost 0.005 % drops 1 drop ophthalmic (eye) DAILY RF: 0 Combigan 0.2-0.5 % drops 1 drop ophthalmic (eye) BID RF: 0 (DME) Diabetic shoes with 3 pairs of inserts See Rx Instructions .Route .MEDSUPPLY Qty: 1 RF: 0 docusate sodium [Colace] 100 mg capsule 100 mg PO BID RF: 0 triamcinolone acetonide 0.1 % cream 1 applic TOPICAL BID PRN (Reason: itching) Qty: 30 RF: 2 warfarin 5 mg tablet 5 mg PO DAILY Qty: 30 RF: 0 (DME) True Metrix Glucose Test Strip Strip See Rx Instructions .ROUTE .MEDSUPPLY Qty: 100 RF: 5 Levemir FlexTouch U-100 Insuln 100 unit/mL (3 mL) insulin pen See Rx Instructions SUBCUT BID Qty: 45 RF: 0 Seroquel 25 mg tablet 25 mg PO BEDTIME RF: 0 Coreg 3.125 mg tablet 3.125 mg PO BEDTIME RF: 0 Flomax 0.4 mg capsule 0.4 mg PO BEDTIME RF: 0 ergocalciferol (vitamin D2) 1,250 mcg (50,000 unit) capsule 1,250 mcg PO Q7D RF: 0 warfarin 1 mg tablet 3 mg PO Q7D RF: 0 Zoloft 50 mg tablet 25 mg PO BID RF: 0 Discharge Orders: Discharge ED (Routine); Ordered 08/01/21 Ordered By: Zulma Crawford Referrals: Krupa,Glennette R, STUDY ABROAD COORDINATOR-C [Primary Care Provider] - Activity Restrictions/Additional Instructions: As we discussed please continue to keep abrasion clean with warm soap and water twice daily and monitor for signs of infection. You need to return to the ED for worsening pain, swelling, lightheadedness, dizziness, passing out episodes, shortness of breath, fevers, or any other concerns you may have. Please follow- up with your PCP at your currently scheduled appointment. Return to the emergency department sooner if needed. Coding Level of Care Code ED Seal Delivery Vehicle Team Technician for Laly Fwshakeel Exam Comprehensive
[2021-08-01 12:48] LABS: Basophils % 0.3 %; Eosinophils # 0.3 10^3/uL (0.0-0.8); Eosinophils % 2.6 %; Hematocrit 40.5 % (42.0-52.0); Hemoglobin 13.3 g/dL (11.7-16.6); Lymphocytes # 1.6 10^3/uL (0.8-4.8); Mean Corpuscular HGB Conc 32.8 g/dL (30.0-36.0); Mean Corpuscular Hemoglobin 30.7 pg (28.0-34.0); Mean Corpuscular Volume 93.5 fl (80-94); Mean Platelet Volume 10.6 fL (7.4-10.4); Monocytes # 1.3 10^3/uL (0.2-0.9); Monocytes % 10.3 %; Neutrophils % 73.2 %; Nucleated Red Blood Cells % 0 %; Platelet Count 248 10^3/cmm (130-400); Red Blood Count 4.33 10^6/uL (4.1-5.3); Red Cell Distribution Width 13.1 % (12.1-15.1); White Blood Count 12.6 10^3/uL (4.0-10.0)
[2021-08-01 12:59] LABS: Alanine Aminotransferase 11 U/L (0-41); Albumin Level 3.3 g/dL (3.5-5.2); Alkaline Phosphatase 110 IU/L (40-130); Aspartate Amino Transferase 16 U/L (0-40); Blood Urea Nitrogen 14 mg/dL (8-23); Calcium 8.5 mg/dL (8.5-10.5); Carbon Dioxide 26 mmol/L (22-29); Chloride 108 mmol/L (98-107); Globulin 2.9 g/dL (1.3-4.6); Glucose 103 mg/dL (65-115); Osmolality Calculated 297 mOsm/kg (285-295); Sodium 143 mmol/L (136-145); Total Bilirubin 1.5 mg/dL (0.15-1.2); Total Protein 6.2 g/dL (6.6-8.7)
[2021-08-01] MEDS: iodixanol 320 mg/mL 100mL Btl IV (13:04)
[2021-08-01 13:48] LABS: INR 2.48 (0.8-1.2)
[2021-08-01 13:49] VITALS: BP 139/81; PULSE 86; RESP 16; O2SAT 99
[2021-08-01] MEDS: sodium chloride 0.9% 1,000 ML 999 ML IV (13:54)
[2021-08-01 15:02] VITALS: BP 160/88; PULSE 81; O2SAT 100
== END 2021-08-01 15:04 | disposition home or self-care (01) ==
PROVIDERS: Emergency Provider Physician Assistant; PCP Nurse Practitioner
DX: S30.1XXA Contusion of abdominal wall, initial encounter (principal); Z79.01 Long term (current) use of anticoagulants; Z79.4 Long term (current) use of insulin; I10 Essential (primary) hypertension; W19.XXXA Unspecified fall, initial encounter
CPT/HCPCS: 71260; 72128; 72131; 74177; 80053; 85025; 85610; 85730; 96360; 99283; J7030; Q9967

== ENCOUNTER → 2021-08-09 11:15 | Outpatient (BNVA) | payer MEDICARE, OTHER, SELFPAY | PROVIDERS: PCP Nurse Practitioner; Visit Provider Nurse Practitioner | DX: E11.65 Type 2 diabetes mellitus with hyperglycemia (principal); Z74.09 Other reduced mobility; E55.9 Vitamin D deficiency, unspecified; Z79.01 Long term (current) use of anticoagulants | CPT/HCPCS: 80053; 82306; 83036 ==

== ENCOUNTER → 2021-09-08 11:23 | Outpatient (BNVA) | payer MEDICARE, OTHER, SELFPAY | PROVIDERS: PCP Nurse Practitioner; Visit Provider Nurse Practitioner | DX: E11.65 Type 2 diabetes mellitus with hyperglycemia (principal); R39.9 Unspecified symptoms and signs involving the genitourinary system | CPT/HCPCS: 81003 ==

== ENCOUNTER → 2021-10-27 09:46 | Outpatient (BNVA) | payer MEDICARE, OTHER, SELFPAY | PROVIDERS: PCP Nurse Practitioner; Visit Provider Nurse Practitioner | DX: E55.9 Vitamin D deficiency, unspecified (principal); E11.65 Type 2 diabetes mellitus with hyperglycemia; E11.42 Type 2 diabetes mellitus with diabetic polyneuropathy; Z79.01 Long term (current) use of anticoagulants; I10 Essential (primary) hypertension; F03.91 Unspecified dementia, unspecified severity, with behavioral disturbance; R39.11 Hesitancy of micturition; Z74.09 Other reduced mobility; I82.409 Acute embolism and thrombosis of unspecified deep veins of unspecified lower extremity | CPT/HCPCS: 80053; 80061; 81000; 82306; 83036; 85025 ==

== ENCOUNTER → 2021-12-15 15:25 | Outpatient (BNVA) | payer MEDICARE, OTHER, SELFPAY | PROVIDERS: PCP Nurse Practitioner; Visit Provider Nurse Practitioner | DX: R39.9 Unspecified symptoms and signs involving the genitourinary system (principal) | CPT/HCPCS: 81000 ==

== ENCOUNTER 2022-01-22 10:20 | Emergency (ER) | payer MEDICARE, OTHER, SELFPAY ==
[2022-01-22 10:22] VITALS: BP 158/87; PULSE 81; RESP 14; TEMP 36.8; O2SAT 95; BMI 28.0
--- NOTE | 2022-01-22 10:40 | CT_ITS ---
WS: [id number] CT HEAD TECHNIQUE: Noncontrast CT of the head obtained from the skullbase to the vertex. CLINICAL INFORMATION: trauma/chronic anticoagulation COMPARISON: 10 20,018 DLP: 790.[address] scans at [facility] use at least one of these dose optimization techniques: automated e xposure control; mA and/or kV adjustment per patient size (includes targeted exams where dose is matc hed to clinical indication); or iterative reconstruction. FINDINGS: No evidence of intracranial hemorrhage or mass effect. Ventricular system and basal cisterns are richards nt. Moderate small vessel changes with moderate parenchymal volume loss. Chronic lacunar infarcts in the RIGHT basal ganglia. Chronic lacunar infarct RIGHT caudate. Intracranial vascular calcification. No extra-axial fluid collections. No evidence of mass or mass effect. Normal darnell-white differentiati on. Subcutaneous air in the RIGHT occipital subcutaneous soft tissues and posterior nasopharynx extending into the RIGHT parapharyngeal fat. This can be further evaluated with neck CT. Paranasal sinuses and mastoid air cells well aerated. No visualized fractures. CT/CT head wo con* [id number] IMPRESSION: 1. No evidence of intracranial hemorrhage or mass effect. 2. Subcutaneous air in the RIGHT occipital subcutaneous soft tissues and poste rior nasopharynx extending into the RIGHT parapharyngeal fat. This can be furth er evaluated with neck CT. 3. Mild small vessel changes. Moderate parenchymal volume loss. 4. Chronic appearing lacunar infarcts in the RIGHT basal ganglia and caudate a re new from 2018 but have a chronic appearance. 5. Otherwise no acute intracranial findings. Attempted notification Clyde Roger DO at 01/22/2022 12:01 PM.
--- NOTE | 2022-01-22 10:40 | ECG_ITS ---
[facility] Test Date: 2022-01-22 Pat Name: Malcom Sams Department: Room: Gender: Male Hat Sizer: : [id number] Requested By: Clyde Chong Order Number: [id number] Ash MD: Rad Joseph M.D. Measurements Intervals [place] Rate: 76 P: 5 UT: 140 QRS: -69 QRSD: 115 T: 73 QT: 413 QTc: 467 Interpretive Statements SINUS RHYTHM INCOMPLETE RIGHT BUNDLE BRANCH BLOCK [90+ ms QRS DURATION, TERMINAL R IN V1/V2, 40+ ms S IN I/aVL/V4/V5/V6] LEFT ANTERIOR FASCICULAR BLOCK [QRS AXIS <= -45, QR IN I, RS IN II] MINIMAL VOLTAGE CRITERIA FOR LVH, CONSIDER NORMAL VARIANT [MEETS CRITERIA IN ONE OF: R(aVL), S(V1), R(V5), R(V5/V6)+S(V1)] POSSIBLE ANTERIOR MYOCARDIAL INFARCTION , OF INDETERMINATE AGE [30 ms Q WAVE IN V3/V4, OR R < 0.2 mV IN V4] Compared to ECG 06/04/2018 12:35:50 Incomplete right bundle-branch block now present Sinus bradycardia no longer present Myocardial infarct finding still present Electronically Signed On 01-22-2022 17:05:21 CASH MANAGEMENT SPECIALIST by Rad Joseph M.D. [email or web address]
--- NOTE | 2022-01-22 10:45 | W.ED.AMS ---
HPI - Altered Mental Status General: Chief Complaint: Altered Mental Status Stated Complaint: SLURRED SPEECH, CONFUSED Time Seen by Provider: 01/22/22 10:24 [facility] ED PFSH: Medical History Anticoagulant long-term use Benign essential hypertension with target blood pressure below 140/90 Deep vein thrombosis (DVT) History of humerus fracture 08/04/2018 Dr. Rubio, again September 2019 in [facility], [place] Phimosis Vitamin D deficiency Surgical History History of cholecystectomy 12/30/17 History of circumcision July 2020 History of colonoscopy History of corneal transplant 2011 Right Presence of cornea transplant RIGHT EYE: 2011 S/P trigger finger release LEFT RING FINGER 12/03/14 Family History Sister Diabetes Family/Other Dementia Social History Second hand smoke exposure: No Smoking risk assessment/counseling performed?: No Alcohol intake: never Desire information about alcohol rehabilitation?: No Counseling given: No Desire information about substance/drug rehabilitation?: No Counseling given: No Adopted: No Caregiver/support person: No Lives independently: Yes Household members: spouse Housing: House Marital status: Number of children: 1 service: No Current occupational status: retired Current occupational exposures/hazards: No Pets and animals: Yes Pets & animals: dog(s) History of recent travel: No Current gender identity: Female Course Vital Signs: Vital signs: Vital Signs Temperature 98.2 F 01/22/22 10:22 Pulse Rate 81 01/22/22 10:22 Respiratory Rate 14 01/22/22 10:22 Blood Pressure 158/87 01/22/22 10:22 Pulse Oximetry 95 01/22/22 10:22 Discharge Plan Discharge Condition: Stable Prescriptions: No Action Calmoseptine 0.44-20.6 % ointment 1 applic TOPICAL QID PRN (Reason: UNKNOWN) 0RF Lamisil (Aerosol) 1 % aerosol,spray 1 spray TOPICAL DAILY Qty: 125 0RF cetirizine 10 mg capsule 10 mg PO DAILY 0RF latanoprost 0.005 % drops 1 drop ophthalmic (eye) DAILY 0RF Combigan 0.2-0.5 % drops 1 drop ophthalmic (eye) BID 0RF (DME) Diabetic shoes with 3 pairs of inserts See Rx Instructions .Route .MEDSUPPLY Qty: 1 0RF Rx Instructions: As directed by SILVIA&O docusate sodium [Colace] 100 mg capsule 100 mg PO BID 0RF triamcinolone acetonide 0.1 % cream 1 applic TOPICAL BID PRN (Reason: itching) Qty: 30 2RF Rx Instructions: apply small amount to arms and legs (DME) wheelchair See Rx Instructions .Route .MEDSUPPLY Qty: 1 0RF Rx Instructions: As directed (DME) True Metrix Glucose Test Strip Strip See Rx Instructions .ROUTE .MEDSUPPLY Qty: 100 5RF Rx Instructions: 3 times day as needed Coreg 3.125 mg tablet 3.125 mg PO BEDTIME Qty: 90 0RF Rx Instructions: must administer with a meal/food ergocalciferol (vitamin D2) 1,250 mcg (50,000 unit) capsule 1,250 mcg PO Q7D Qty: 4 2RF Rx Instructions: TAKE ON SATURDAY Levemir FlexTouch U-100 Insuln 100 unit/mL (3 mL) insulin pen See Rx Instructions SUBCUT BID Qty: 45 2RF Rx Instructions: 45 units AM and 35 units PM SUBCUT twice a day; Zoloft 50 mg tablet 25 mg PO BID Qty: 90 0RF Flomax 0.4 mg capsule 0.4 mg PO BEDTIME Qty: 90 0RF warfarin 5 mg tablet 5 mg PO DAILY Qty: 30 0RF Protocol: Dose Management Condition: Saturday Dose/Route: 5 mg Instruction: 1 x 5 mg tablet Condition: Saturday Dose/Route: 5 mg Instruction: 1 x 5 mg tablet Condition: Saturday Dose/Route: 5.5 mg Instruction: 5.5 x 1 mg tablets Condition: Saturday Dose/Route: 5 mg Instruction: 1 x 5 mg tablet Condition: Dose/Route: 5 mg Instruction: 1 x 5 mg tablet Condition: Saturday Dose/Route: 5 mg Instruction: 1 x 5 mg tablet Condition: Saturday Dose/Route: 5 mg Instruction: 1 x 5 mg tablet Protocol Text: Adjustment Start Date: Saturday01/22/22 INR Value: 2.6 INR Date: 02/28/22 Recheck Date: 01/29/22 Rx Instructions: 5mg 6 days and 5.5mg 1 day warfarin 1 mg tablet 0.5 mg PO Q7D Qty: 20 0RF Protocol: Dose Management Condition: Saturday Dose/Route: 5 mg Instruction: 1 x 5 mg tablet Condition: Saturday Dose/Route: 5 mg Instruction: 1 x 5 mg tablet Condition: Saturday Dose/Route: 5.5 mg Instruction: 5.5 x 1 mg tablets Condition: Saturday Dose/Route: 5 mg Instruction: 1 x 5 mg tablet Condition: Dose/Route: 5 mg Instruction: 1 x 5 mg tablet Condition: Saturday Dose/Route: 5 mg Instruction: 1 x 5 mg tablet Condition: Saturday Dose/Route: 5 mg Instruction: 1 x 5 mg tablet Protocol Text: Adjustment Start Date: Saturday01/22/22 INR Value: 2.6 INR Date: 01/22/22 Recheck Date: 01/29/22 Rx Instructions: TAKE WITH 5 MG 6 day and 5.5mg 1 day. Seroquel 25 mg tablet 25 mg PO BEDTIME Qty: 30 0RF Referrals: Vasile Gentile COLD FOOD PACKER-C [Primary Care Provider] - Coding Level of Care Code ED Belly Dump Driver for Laly Jaramillo
--- NOTE | 2022-01-22 10:46 | W.ED.GENADLT ---
HPI - General Adult General: Chief complaint: Altered Mental Status Stated complaint: SLURRED SPEECH, CONFUSED Time Seen by Provider: 01/22/22 10:24 Source: patient and family Mode of arrival: EMS Limitations: altered mental status (Dementia) History of Present Illness: 86-year-old male presents emergency room confused and disoriented per the . He has a known history of cognitive deficits with sundowners has been progressively worsening over the last 2 years. She states at night he will frequently get up and try to get around he will stumble and fall. He is on Coumadin he has a large hematoma on the right flank. There is no reported loss of consciousness although I am not sure how I got history the patient gives me as. states she usually hears him fall and is able to attend to them immediately. She heard him fall this morning was able to get up and help him immediately after she heard him fall he had no prolonged downtime. No report of chest pain or shortness of breath or abdominal pain no hematuria per the patient or his . Onset (ago): day(s) Location: head (Abrasion) and abdomen (Hematoma) Severity: moderate Quality: aching Pain Consistency: constant Relieving factors: none Exacerbating factors: none Associated symptoms: Reports confusion, decreased appetite, malaise and weakness; Deny chest pain, cough, diaphoresis, dyspnea, fevers/chills, headache(s), nausea, rash, palpitations, seizures, short of breath, syncope or vomiting Treatments prior to arrival: none Review of Systems General: Reports: Other Narrative: Review of system largely completed with assistance of the who is his main caregiver Const: Reports: malaise; Denies: diaphoresis ENMT: Denies: throat pain, ear or mastoid pain, nasal discharge or nasal congestion Card: Denies: chest pain, palpitations or syncope Resp: Denies: dyspnea GI: Denies: nausea or vomiting : Denies: flank pain, dysuria, urinary frequency or urinary urgency Skin/Breast: Denies: rash Neuro: Reports: confusion; Denies: headache(s) PFS ED PFSH: Medical History Anticoagulant long-term use Benign essential hypertension with target blood pressure below 140/90 Deep vein thrombosis (DVT) History of humerus fracture 08/04/2018 Dr. Rubio, again September 2019 in [facility], [place] Phimosis Vitamin D deficiency Surgical History History of cholecystectomy 12/30/17 History of circumcision July 2020 History of colonoscopy History of corneal transplant 2012 Right Presence of cornea transplant RIGHT EYE: 2011 S/P trigger finger release LEFT RING FINGER 12/03/14 Family History Sister Diabetes Family/Other Dementia Social History Second hand smoke exposure: No Smoking risk assessment/counseling performed?: No Alcohol intake: never Desire information about alcohol rehabilitation?: No Counseling given: No Desire information about substance/drug rehabilitation?: No Counseling given: No Adopted: No Caregiver/support person: No Lives independently: Yes Household members: spouse Housing: House Marital status: Number of children: 1 service: No Current occupational status: retired Current occupational exposures/hazards: No Pets and animals: Yes Pets & animals: dog(s) History of recent travel: No Current gender identity: Female Physical Exam Const: COMMON NORMALS: no acute distress GENERAL APPEARANCE: cooperative ORIENTATION/CONSCIOUSNESS: Yes awake HENMT: COMMON NORMALS: normocephalic, atraumatic and hearing grossly normal bilaterally HEAD & SCALP: normocephalic and atraumatic Neck/C-Spine: COMMON NORMALS: no JVD Resp: COMMON NORMALS: normal respiratory effort, No retractions, No use of accessory muscles and clear to auscultation bilaterally AUSCULTATION: clear to auscultation bilaterally Cardio: COMMON NORMALS: no JVD, regular rate, regular rhythm and No murmurs present (Cardio) RATE: regular rate RHYTHM: regular rhythm GI: COMMON NORMALS: Soft to palpation and No hepatosplenomegaly present AUSCULTATION: Yes normoactive bowel sounds PALPATION: Yes Soft to palpation, No Tenderness to palpation present (GI), No Guarding due to palpation present (GI) and Yes No hepatosplenomegaly present OTHER: Large hematoma on the right flank extending from the lower portion of the ribs down to the superior iliac crest. Extremity: COMMON NORMALS: normal to inspection, capillary refill normal, no clubbing, cyanosis or edema, no calf tenderness and no pedal edema Skin: COMMON NORMALS: no rashes or lesions noted GENERAL SKIN EXAM: no rashes or lesions noted Course Vital Signs: Vital signs: Vital Signs Temperature 98.2 F 01/22/22 10:22 Pulse Rate 80 01/22/22 12:30 Respiratory Rate 16 01/22/22 16:00 Blood Pressure 142/78 01/22/22 16:00 Pulse Oximetry 94 01/22/22 16:00 MDM - General Adult Medical Decision Making Patient is relatively minimal symptoms. He is alert but not he answers questions although when getting in more detail he has difficulty. When his arrived she states he has had some cognitive deficits for a while and has a lot of sundowning. He gets up at night and tries to walk around. Initially we evaluated his head, on that head CT there was some air at the base of the skull. CT of the cervical spine and of the soft tissues of the neck showed significant air and evidence of pneumomediastinum CT of the chest and x-ray of the chest shows subcutaneous air along the right lateral chest wall with multiple rib fractures and what appears to be a pleural effusion the CT confirmed this and appears to be hematoma there is a very small right pneumothorax. I did not place a chest tube given the patient's anticoagulation status and the fact that his oxygen sats remain good he was not having any labored breathing. He felt that this point that a chest tube placement would actually probably cause more complications than it would relieve. Given the dissection of the area suspect this happened sometime ago. His INR is 2.64. Discussed with the family will transfer to trauma center. Discussed with the explained the findings answered questions. Discussed with physician at [facility] they will accept as a direct transfer. Medical Records I reviewed the patient's medical records. Lab Data I reviewed the patient's lab results. : 01/22/22 11:05 01/22/22 11:[address] 01/22/22 10:40 IMPRESSION: 1. No evidence of intracranial hemorrhage or mass effect. 2. Subcutaneous air in the RIGHT occipital subcutaneous soft tissues and posterior nasopharynx extending into the RIGHT parapharyngeal fat. This can be further evaluated with neck CT. 3. Mild small vessel changes. Moderate parenchymal volume loss. 4. 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 5. Otherwise no acute intracranial findings. Attempted notification Clyde Roger DO at 01/22/2022 12:[address] 01/22/22 12:06 IMPRESSION: 1. No evidence of acute cervical fracture or dislocation. 2. Diffuse subcutaneous air in the retropharyngeal, RIGHT posterior neck, and RIGHT anterior chest soft tissues. Partially visualized pneumomediastinum. 3. Partially visualized RIGHT hemothorax and RIGHT upper rib fractures. Notified Clyde Roger DO at 01/22/2022 1:[address] 01/22/22 12:06 IMPRESSION: 1. Extensive subcutaneous emphysema in the RIGHT neck soft tissues extending into the upper mediastinum and RIGHT lateral chest wall. This extends into the RIGHT anterior chest soft tissues. Chest CT is pending. 2. Partially visualized RIGHT upper rib fractures. 3. Small to moderate RIGHT hemothorax. 4. LEFT lung apex is well aerated. Notified Clyde Roger DO at 01/22/2022 1:47 PM. Chest/Abdomen/Pelvis CT 01/22/22 13:42 IMPRESSION: 1. Multiple displaced right-sided rib fractures as described above with lung contusion and mild to moderate RIGHT hemothorax. 2. Only very tiny RIGHT apical pneumothorax better seen on the coronal imaging. 3. Associated pneumomediastinum with subcutaneous emphysema in the lower neck and chest soft tissues. This extends into the RIGHT lateral chest wall and RIGHT flank. 4. Trace LEFT pleural fluid with interstitial edema in the lung bases. 5. No evidence of solid organ injury in the abdomen or pelvis. 6. 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 7. Subacute to chronic appearing fracture deformities involving the RIGHT scapula at the spine and tip of the scapula. Some of these were present on the prior CT August 01, 2021. This can be followed up with dedicated scapula CT. Notified Clyde Roger DO at 01/22/2022 2:58 PM. Chest X-Ray 01/22/22 14:06 IMPRESSION: 1. Low lung volumes. 2. Interstitial congestion bilateral lower lobes. 3. Subcutaneous emphysema right lateral chest wall and bilateral neck soft tissues 4. Chronic fracture deformity proximal left humerus shaft. Laboratory Results WBC 12.3 10^3/uL (4.0-10.0) H 02/28/22 11:05 RBC 4.37 10^6/uL (4.1-5.3) 01/22/22 11:05 Hgb 13.5 g/dL (11.7-16.6) 01/22/22 11:05 Hct 40.6 % (42.0-52.0) L 01/22/22 11:05 MCV 92.9 fl (80-94) 01/22/22 11:05 MCH 30.9 pg (28.0-34.0) 01/22/22 11:05 MCHC 33.3 g/dL (30.0-36.0) 01/22/22 11:05 RDW 13.2 % (12.1-15.1) 01/22/22 11:05 Plt Count 209 10^3/cmm (130-400) 01/22/22 11:05 MPV 9.7 fL (7.4-10.4) 01/22/22 11:05 Neut % (Auto) 71.5 % 01/22/22 11:05 Lymph % (Auto) 13.9 % 01/22/22 11:05 [place] % (Auto) 10.1 % 01/22/22 11:05 Eos % (Auto) 2.9 % 01/22/22 11:05 Baso % (Auto) 0.6 % 01/22/22 11:05 Neut # (Auto) 8.83 10^3/uL (1.8-7.7) H 01/22/22 11:05 Lymph # (Auto) 1.7 10^3/uL (0.8-4.8) 01/22/22 11:05 [place] # (Auto) 1.3 10^3/uL (0.2-0.9) H 01/22/22 11:05 Eos # (Auto) 0.4 10^3/uL (0.0-0.8) 01/22/22 11:05 Baso # (Auto) 0.1 10^3/uL (0.0-0.1) 01/22/22 11:05 Nucleated RBC % (auto) 0 % 01/22/22 11:05 Nucleated RBCs # 0.0 /100WBC 01/22/22 11:05 PT 28.60 SECONDS (12.1-14.9) H 01/22/22 11:45 INR 2.64 (0.8-1.2) H 01/22/22 11:45 Sodium 139 mmol/L (136-145) 01/22/22 11:05 Potassium 3.5 mmol/L (3.5-5.1) 01/22/22 11:05 Chloride 103 mmol/L (98-107) 01/22/22 11:05 Carbon Dioxide 25 mmol/L (22-29) 01/22/22 11:05 Anion Gap 14.5 (5-19) 01/22/22 11:05 BUN 17 mg/dL (8-23) 01/22/22 11:05 Creatinine 0.6 mg/dL (0.7-1.2) L 01/22/22 11:05 GFR Calculation Not Reportable 01/22/22 11:05 Glucose 137 mg/dL (65-115) H 01/22/22 11:05 Calculated Osmolality 292 mOsm/kg (285-295) 01/22/22 11:05 Calcium 8.8 mg/dL (8.5-10.5) 01/22/22 11:05 Total Bilirubin 2.6 mg/dL (0.15-1.2) H 01/22/22 11:05 AST 19 U/L (0-40) 01/22/22 11:05 ALT 13 U/L (0-41) 01/22/22 11:05 Alkaline Phosphatase 116 IU/L (40-130) 01/22/22 11:05 Total Protein 6.0 g/dL (6.6-8.7) L 01/22/22 11:05 Albumin 3.7 g/dL (3.5-5.2) 01/22/22 11:05 Globulin 2.3 g/dL (1.3-4.6) 01/22/22 11:05 Urine Color Yellow (Yellow) 01/22/22 15:50 Urine Appearance Clear (CLEAR) 01/22/22 15:50 Urine pH 5 (5-7) 01/22/22 15:50 Ur Specific [place] 1.010 (1.005-1.030) 01/22/22 15:50 Urine Protein Trace (Negative) 01/22/22 15:50 Urine Glucose (UA) Norm (Normal) 01/22/22 15:50 Urine Ketones Negative (Negative) 01/22/22 15:50 Urine Blood Neg (Negative) 01/22/22 15:50 Urine Nitrate Negative (Negative) 01/22/22 15:50 Urine Bilirubin Neg (Negative) 01/22/22 15:50 Urine Urobilinogen 1 mg/dL (Negative) H 01/22/22 15:50 Ur Leukocyte Esterase Negative (Negative) 01/22/22 15:50 Urine RBC None /hpf (0-2) 01/22/22 15:50 Urine WBC 0-4 /hpf (0-5) H 01/22/22 15:50 Ur Squamous Epith Cells None /hpf (0-5) 01/22/22 15:50 Amorphous Sediment Not Reportable 01/22/22 15:50 Urine Bacteria Trace /hpf (NONE) 01/22/22 15:50 Urine Mucus 1+ /hpf 01/22/22 15:50 Critical Care Time Critical Care Time: Critical Care Time: Yes Total Critical Care Time: 45 Attestation: The high probability of a clinically significant, sudden or life threatening deterioration of the patient's cardiovascular respiratory secondary to trauma system(s) required my full and direct attention, intervention and personal management. The critical care time is as shown. This time is in addition to time spent performing any reported procedures but includes the following: [x] Data and vital sign review and interpretation [x] Patient assessment, examination and intervention [x] Documentation [x] Medication orders and management Discharge Plan Discharge Patient Disposition: Transfer to ED Clinical Impression: Hemopneumothorax on right, Anticoagulant long-term use, Chronic dementia with behavioral disturbance, Deep vein thrombosis (DVT), Type 2 diabetes mellitus with hyperglycemia, Pneumomediastinum, Multiple closed fractures of ribs of right side, Falls frequently Condition: Stable Prescriptions: No Action cetirizine 10 mg capsule 10 mg PO QAM 0RF latanoprost 0.005 % drops 1 drop ophthalmic (eye) BEDTIME 0RF Rx Instructions: right eye Combigan 0.2-0.5 % drops 1 drop ophthalmic (eye) BID 0RF Rx Instructions: right eye (DME) Diabetic shoes with 3 pairs of inserts See Rx Instructions .Route .MEDSUPPLY Qty: 1 0RF Rx Instructions: As directed by SILVIA&O docusate sodium [Colace] 100 mg capsule 100 mg PO QAM 0RF (DME) wheelchair See Rx Instructions .Route .MEDSUPPLY Qty: 1 0RF Rx Instructions: As directed (DME) True Metrix Glucose Test Strip Strip See Rx Instructions .ROUTE .MEDSUPPLY Qty: 100 5RF Rx Instructions: 3 times day as needed Coreg 3.125 mg tablet 3.125 mg PO BEDTIME Qty: 90 0RF Rx Instructions: must administer with a meal/food ergocalciferol (vitamin D2) 1,250 mcg (50,000 unit) capsule 1,250 mcg PO Q7D Qty: 4 2RF Rx Instructions: TAKE ON SATURDAY Levemir FlexTouch U-100 Insuln 100 unit/mL (3 mL) insulin pen See Rx Instructions SUBCUT BID Qty: 45 2RF Rx Instructions: 45 units every morning and 35 units every evening Zoloft 50 mg tablet 25 mg PO BID Qty: 90 0RF Flomax 0.4 mg capsule 0.4 mg PO BEDTIME Qty: 90 0RF Seroquel 25 mg tablet 25 mg PO BEDTIME Qty: 30 0RF warfarin 5 mg tablet See Rx Instructions mg .ROUTE .COMPLEX 0RF Protocol: Dose Management Condition: Saturday Dose/Route: 5 mg Instruction: 1 x 5 mg tablet Condition: Saturday Dose/Route: 5 mg Instruction: 1 x 5 mg tablet Condition: Saturday Dose/Route: 5.5 mg Instruction: 5.5 x 1 mg tablets Condition: Saturday Dose/Route: 5 mg Instruction: 1 x 5 mg tablet Condition: Dose/Route: 5 mg Instruction: 1 x 5 mg tablet Condition: Saturday Dose/Route: 5 mg Instruction: 1 x 5 mg tablet Condition: Saturday Dose/Route: 5 mg Instruction: 1 x 5 mg tablet Protocol Text: Adjustment Start Date: Saturday01/22/22 INR Value: 2.6 INR Date: 01/22/22 Recheck Date: 01/29/22 Rx Instructions: take 5mg po every am on sat,sat,sat,,sat and sat except on take 5.5mg po every am Referrals: Vasile Gentile [id number] [Primary Care Provider] - Coding Level of Care Code ED Procurement Inspector for Laly Jaramillo
[2022-01-22 11:00] VITALS: BP 158/87; PULSE 70; RESP 18; O2SAT 95
[2022-01-22 11:16] LABS: Basophils # 0.1 10^3/uL (0.0-0.1); Basophils % 0.6 %; Eosinophils # 0.4 10^3/uL (0.0-0.8); Eosinophils % 2.9 %; Hematocrit 40.6 % (42.0-52.0); Hemoglobin 13.5 g/dL (11.7-16.6); Lymphocytes # 1.7 10^3/uL (0.8-4.8); Lymphocytes % 13.9 %; Mean Corpuscular HGB Conc 33.3 g/dL (30.0-36.0); Mean Corpuscular Hemoglobin 30.9 pg (28.0-34.0); Mean Corpuscular Volume 92.9 fl (80-94); Mean Platelet Volume 9.7 fL (7.4-10.4); Monocytes # 1.3 10^3/uL (0.2-0.9); Monocytes % 10.1 %; Neutrophils # 8.83 10^3/uL (1.8-7.7); Neutrophils % 71.5 %; Nucleated Red Blood Cells % 0 %; Platelet Count 209 10^3/cmm (130-400); Red Blood Count 4.37 10^6/uL (4.1-5.3); Red Cell Distribution Width 13.2 % (12.1-15.1); White Blood Count 12.3 10^3/uL (4.0-10.0)
[2022-01-22 11:38] LABS: Alanine Aminotransferase 13 U/L (0-41); Albumin Level 3.7 g/dL (3.5-5.2); Alkaline Phosphatase 116 IU/L (40-130); Anion Gap 14.5 (5-19); Aspartate Amino Transferase 19 U/L (0-40); Blood Urea Nitrogen 17 mg/dL (8-23); Calcium 8.8 mg/dL (8.5-10.5); Carbon Dioxide 25 mmol/L (22-29); Chloride 103 mmol/L (98-107); Globulin 2.3 g/dL (1.3-4.6); Glucose 137 mg/dL (65-115); Osmolality Calculated 292 mOsm/kg (285-295); Potassium 3.5 mmol/L (3.5-5.1); Sodium 139 mmol/L (136-145); Total Bilirubin 2.6 mg/dL (0.15-1.2)
--- NOTE | 2022-01-22 12:06 | CT_ITS ---
WS: [id number] CT CERVICAL TRAUMA TECHNIQUE: Noncontrast CT of the cervical spine with coronal and sagittal reformatted images. CLINICAL INFORMATION: fall COMPARISON: 2018 DLP: 664.[address] scans at [facility] use at least one of these dose optimization techniques: automated e xposure control; mA and/or kV adjustment per patient size (includes targeted exams where dose is matc hed to clinical indication); or iterative reconstruction. FINDINGS: Straightening of the normal cervical lordosis. Prominent hypertrophic changes mid and lower cervical spine with ankylosis. Moderate spondylitic changes. Normal craniocervical junction. Normal C1-C2 shanelle culation. Dens is normal in appearance. Normal occipital condyles. No high-grade spinal canal narrowi ng. Normal C1 ring. No evidence of acute fracture or dislocation. Mastoids air cells are well aerated. Diffuse subcutaneous air in the retropharyngeal, RIGHT posterior neck, and RIGHT anterior chest soft tissues. Partially visualized pneumomediastinum. Partially visualized RIGHT hemothorax and RIGHT upper rib fractures. CT/CT cervical spin wo con* [id number] IMPRESSION: 1. No evidence of acute cervical fracture or dislocation. 2. Diffuse subcutaneous air in the retropharyngeal, RIGHT posterior neck, and RIGHT anterior chest soft tissues. Partially visualized pneumomediastinum. 3. Partially visualized RIGHT hemothorax and RIGHT upper rib fractures. Notified Clyde Roger DO at 01/22/2022 1:53 PM.
--- NOTE | 2022-01-22 12:06 | CT_ITS ---
WS: [id number] CT NECK TECHNIQUE: Contrast-enhanced CT of the neck with coronal and sagittal reformatted images. CLINICAL INFORMATION: fall air in soft tissues COMPARISON: CT head earlier today DLP: 421.[address] scans at [facility] use at least one of these dose optimization techniques: automated e xposure control; mA and/or kV adjustment per patient size (includes targeted exams where dose is matc hed to clinical indication); or iterative reconstruction. FINDINGS: Diffuse subcutaneous emphysema in the RIGHT posterior and lateral upper chest wall with partially vis ualized pneumomediastinum. This extends into the soft tissues of the RIGHT neck and upper chest. This extends to the posterior nasopharynx and skull base as described on the prior head CT. Retropharynge al air. Partially visualized RIGHT posterior rib fractures on the upper chest imaging. Recommend furt her evaluation with chest CT. Great vessel origins appear normal. Normal parotid glands. Normal subma ndibular glands. Hypertrophic changes cervical spine. Partially visualized RIGHT hemothorax. Heterogeneous thyroid with a few small thyroid nodules greater on the RIGHT. CT/CT neck w con* [id number] IMPRESSION: 1. Extensive subcutaneous emphysema in the RIGHT neck soft tissues extending i nto the upper mediastinum and RIGHT lateral chest wall. This extends into the R IGHT anterior chest soft tissues. Chest CT is pending. 2. Partially visualized RIGHT upper rib fractures. 3. Small to moderate RIGHT hemothorax. 4. LEFT lung apex is well aerated. Notified Clyde Roger DO at 01/22/2022 1:47 PM.
[2022-01-22 12:09] LABS: INR 2.64 (0.8-1.2)
[2022-01-22 12:30] VITALS: BP 158/87; PULSE 80; RESP 20; O2SAT 95
[2022-01-22] MEDS: iohexol 300 mg/mL 100 mL Btl IV (13:34)
--- NOTE | 2022-01-22 13:42 | CT_ITS ---
WS: [id number] CT CHEST, ABDOMEN, AND PELVIS TECHNIQUE: Noncontrast CT of the chest, abdomen, and pelvis with coronal and sagittal reformatted albert ges. CLINICAL INFORMATION: just had contrast/pneumomediastienum COMPARISON: None. DLP: 2412.[address] scans at [facility] use at least one of these dose optimization techniques: automated e xposure control; mA and/or kV adjustment per patient size (includes targeted exams where dose is matc hed to clinical indication); or iterative reconstruction. CT CHEST: Ectatic ascending thoracic aorta measuring 4.7 CM. Again seen is subcutaneous emphysema in the lower neck and anterior RIGHT chest soft tissues. This extends along the RIGHT lateral chest wall and into the RIGHT flank. Small amount of pneumomediastinum at the thoracic inlet. Small RIGHT hemothorax with compressive atelectasis RIGHT lower lobe. Trace LEFT pleural fluid. Interstitial edema in the lung b ases. Multiple RIGHT 5th 6th and 7th and 8th posterior rib fractures evident acute appearance. Displacement of the RIGHT 6th and 7th rib fractures into the lung parenchyma with associated hemothorax. Addition al lower RIGHT chronic appearing healed rib fractures with callus formation.Nondisplaced RIGHT 2nd pr oximal rib fracture. Chronic appearing fracture deformity LEFT humerus. Subacute to chronic appearing fracture deformities involving the RIGHT spine of the scapula and tip of the scapula. Evidence of callus formation. Some of these were present on the prior CT August 01, 2021. This can be followed up with dedicated scap bonnie CT. CT ABDOMEN AND PELVIS: Noncontrast liver is normal. Calcified RIGHT renal cyst measuring 4.6 x 4.7 CM. Normal GE junction. F atty atrophy of the pancreas. Normal caliber abdominal aorta. Normal ureteral excretion. No hydroneph rosis. Bilateral renal cortical atrophy. Mild prostate enlargement measuring 4.2 CM. RIGHT XIANG. Sigmoid diverticulosis. No evidence of acute d iverticulitis. No evidence of solid organ injury in the abdomen or pelvis. Subcutaneous emphysema ext ends into the RIGHT flank region. Hypertrophic changes lumbar spine. Ankylosis thoracic and lumbar sp ine. No acute appearing compression fractures. CT/CT chest abd pel wo con IMPRESSION: 1. Multiple displaced right-sided rib fractures as described above with lung c ontusion and mild to moderate RIGHT hemothorax. 2. Only very tiny RIGHT apical pneumothorax better seen on the coronal imaging . 3. Associated pneumomediastinum with subcutaneous emphysema in the lower neck and chest soft tissues. This extends into the RIGHT lateral chest wall and RIGH T flank. 4. Trace LEFT pleural fluid with interstitial edema in the lung bases. 5. No evidence of solid organ injury in the abdomen or pelvis. 6. 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 7. Subacute to chronic appearing fracture deformities involving the RIGHT scap bonnie at the spine and tip of the scapula. Some of these were present on the prio r CT August 01, 2021. This can be followed up with dedicated scapula CT. Notified Clyde Roger DO at 01/22/2022 2:58 PM.
[2022-01-22 14:00] VITALS: BP 185/87; RESP 22; O2SAT 96
--- NOTE | 2022-01-22 14:06 | XRR_ITS ---
PROCEDURE INFORMATION: Exam: XR Chest Exam date and time: 01/22/2022 2:06 PM Age: 86 years old Clinical indication: Cough and dyspnea; Patient HX: History--slurred speech, confused; Additional info: Dyspnea/cough TECHNIQUE: Imaging protocol: XR of the chest. Views: 1 view. COMPARISON: CT chest abd pel w con* 08/01/2021 1:06 PM FINDINGS: Lungs: Low lung volumes are seen. There is an interstitial congestion in the bilateral lower lobe No consolidation. Pleural spaces: Unremarkable. No pleural effusion. No pneumothorax. Heart/Mediastinum: Unremarkable. No cardiomegaly. Bones/joints: There is a chronic fracture deformity in the proximal shaft of the left humerus. There is diffuse subcutaneous emphysema in the right lateral chest wall and bilateral neck soft tissues. XR/XR chest 1V portable [id number] IMPRESSION: 1. Low lung volumes. 2. Interstitial congestion bilateral lower lobes. 3. Subcutaneous emphysema right lateral chest wall and bilateral neck soft tissues 4. Chronic fracture deformity proximal left humerus shaft.
[2022-01-22 16:00] VITALS: BP 142/78; RESP 16; O2SAT 94
--- NOTE | 2022-01-22 16:19 | PC.NURSE ---
REPORT CALLED TO UCHE PATINO AT [facility] ED, ALL TRANSFER PAPERWORK COMPLETED
[2022-01-22 18:08] LABS: Add Urine Culture? No; Add Urine Microscopic? YES; Bacteria Urine TRACE /hpf; Bilirubin Urine Neg (Negative); Blood Urine Neg (Negative); Glucose Urine UA Norm (Normal); Ketones Urine Negative (Negative); Leukocyte Esterase Urine Negative (Negative); Mucus Urine 1+ /hpf; Nitrate Urine Negative (Negative); Protein Urine Trace (Negative); Urine Appearance Clear (CLEAR); Urine Color Yellow (Yellow); Urobilinogen Urine 1 mg/dL (Negative); WBC Urine 0-4 /hpf (0-5); pH Urine 5 (5-7)
== END 2022-01-22 17:35 ==
PROVIDERS: Emergency Provider Family Medicine; PCP Nurse Practitioner
DX: F03.91 Unspecified dementia, unspecified severity, with behavioral disturbance (principal); I82.409 Acute embolism and thrombosis of unspecified deep veins of unspecified lower extremity; E11.65 Type 2 diabetes mellitus with hyperglycemia; J98.2 Interstitial emphysema; S22.41XA Multiple fractures of ribs, right side, initial encounter for closed fracture; Z79.01 Long term (current) use of anticoagulants; Z79.4 Long term (current) use of insulin; I10 Essential (primary) hypertension; Z86.718 Personal history of other venous thrombosis and embolism; S27.2XXA Traumatic hemopneumothorax, initial encounter; W19.XXXA Unspecified fall, initial encounter
CPT/HCPCS: 70450; 70491; 71045; 71250; 72125; 74176; 80053; 81001; 85025; 85610; 93005; 99285; Q9967

== ENCOUNTER 2022-03-04 23:20 | Inpatient (IN) | payer MEDICARE, OTHER, SELFPAY ==
[2022-03-04 23:21] VITALS: BP 105/59; PULSE 117; RESP 18; O2SAT 88
--- NOTE | 2022-03-04 23:22 | XRR_ITS ---
PROCEDURE INFORMATION: Exam: XR Chest Exam date and time: 03/04/2022 11:40 PM Age: 86 years old Clinical indication: Dyspnea; Additional info: SOB TECHNIQUE: Imaging protocol: XR of the chest. Views: 1 view. COMPARISON: CT chest abd pel wo con 01/22/2022 2:30 PM FINDINGS: Lungs: Patchy bilateral airspace infiltrates greatest in the right mid lung field and left lower lobe. Pleural spaces: Small right pleural effusion. Heart/Mediastinum: Cardiomegaly. Bones/joints: Unremarkable. XR/XR chest 1V portable [id number] IMPRESSION: 1. Patchy bilateral airspace infiltrates greatest in the right mid lung field and left lower lobe. 2. Small right pleural effusion. 3. Cardiomegaly.
--- NOTE | 2022-03-04 23:23 | ECG_ITS ---
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 Measurements Intervals [place] Rate: 118 P: 70 NM: 163 QRS: -63 QRSD: 105 T: 79 QT: 341 QTc: 479 Interpretive Statements SINUS TACHYCARDIA WITH OCCASIONAL SUPRAVENTRICULAR PREMATURE COMPLEXES POSSIBLE ANTERIOR MYOCARDIAL INFARCTION , PROBABLY OLD [30 ms Q WAVE IN V3/V4, OR R < 0.2 mV IN V4] INFERIOR MYOCARDIAL INFARCTION , PROBABLY OLD [40+ ms Q WAVE AND/OR ST/T ABNORMALITY IN II/aVF] Compared to ECG 01/22/2022 10:57:24 Sinus rhythm no longer present Incomplete right bundle-branch block no longer present Left anterior fascicular block no longer present Myocardial infarct finding still present Electronically Signed On 03-05-2022 22:50:01 CDT by Rad Joseph M.D. [id number]
[2022-03-04 23:29] VITALS: PULSE 115; RESP 48; O2SAT 93
[2022-03-04 23:37] LABS: ABG PCO2 38.5 mmHg (35-45); ABG PH Result 7.35 (7.35-7.45); Arterial Blood Gas Hematocrit 43.6 % (42-52); Base Excess ABG -3.9 mmol/L (-2.0-2.0); Blood Gas Allen Test Pos; Blood Gas Sample Site Radial, left; Blood Gas Sample Type Arterial; HCO3 ABG 21.3 mmol/L (22-26); Oxygen Device BIPAP; PO2 ABG 64.9 mmHg (80.0-100.0)
[2022-03-04 23:42] LABS: Basophils # 0.1 10^3/uL (0.0-0.1); Basophils % 0.4 %; Eosinophils # 0.2 10^3/uL (0.0-0.8); Eosinophils % 1.2 %; Hemoglobin 13.4 g/dL (11.7-16.6); Lymphocytes # 0.4 10^3/uL (0.8-4.8); Lymphocytes % 2.8 %; Mean Corpuscular HGB Conc 31.9 g/dL (30.0-36.0); Mean Corpuscular Hemoglobin 30.8 pg (28.0-34.0); Mean Corpuscular Volume 96.6 fl (80-94); Mean Platelet Volume 10.4 fL (7.4-10.4); Monocytes # 0.5 10^3/uL (0.2-0.9); Monocytes % 3.8 %; Neutrophils # 13.08 10^3/uL (1.8-7.7); Neutrophils % 91.5 %; Nucleated Red Blood Cells % 0 %; Platelet Count 245 10^3/cmm (130-400); Red Blood Count 4.35 10^6/uL (4.1-5.3); Red Cell Distribution Width 13.8 % (12.1-15.1); White Blood Count 14.3 10^3/uL (4.0-10.0)
--- NOTE | 2022-03-04 23:49 | W.ED.GENADLT ---
HPI - General Adult General: Chief complaint: General Medical Stated complaint: AMS/LOW O2 Time Seen by Provider: 03/04/22 23:22 Source: family and EMS Mode of arrival: EMS Limitations: altered mental status History of Present Illness: 86-year-old male who is here from a retirement with dementia. He had eaten earlier today and had an episode aspiration nurses at retirement states that he is declined severely throughout the day EMS arrived his pulse ox was in the 60s they put him on a 15% nonrebreather pulse ox was still in the 80s I placed on BiPAP here. They state his original blood pressure was in the 70s he had 500 mL is now 100/59. He is not labored respirations no known fever patient is very altered not able to give any history. Review of Systems General: Reports: ROS unobtainable due to medical condition and ROS unobtainable due to mental status [facility] PFSH: Medical History Anticoagulant long-term use Benign essential hypertension with target blood pressure below 140/90 Deep vein thrombosis (DVT) History of humerus fracture 08/04/2018 Dr. Rubio, again September 2019 in [facility], [place] Phimosis Vitamin D deficiency Surgical History History of cholecystectomy 12/30/17 History of circumcision July 2020 History of colonoscopy History of corneal transplant 2011 Right Presence of cornea transplant RIGHT EYE: 2011 S/P trigger finger release LEFT RING FINGER 12/03/14 Family History Sister Diabetes Family/Other Dementia Social History Second hand smoke exposure: No Smoking risk assessment/counseling performed?: No Alcohol intake: never Desire information about alcohol rehabilitation?: No Counseling given: No Desire information about substance/drug rehabilitation?: No Counseling given: No Adopted: No Caregiver/support person: No Lives independently: Yes Household members: spouse Housing: House Marital status: Number of children: 1 service: No Current occupational status: retired Current occupational exposures/hazards: No Pets and animals: Yes Pets & animals: dog(s) History of recent travel: No Current gender identity: Female Physical Exam Const: COMMON NORMALS: negative for patient oriented x3 GENERAL APPEARANCE: in distress, lethargic, ill appearing and frail appearing ORIENTATION/CONSCIOUSNESS: Yes lethargic HENMT: COMMON NORMALS: normocephalic and atraumatic HEAD & SCALP: normocephalic and atraumatic Eye: COMMON NORMALS: Equal, round and reactive pupils present and EOMs intact bilaterally PUPIL: Yes Equal, round and reactive pupils present Neck/C-Spine: COMMON NORMALS: full ROM and supple Chest: COMMONS NORMALS: normal inspection of the chest and normal palpation of entire chest wall Resp: EFFORT & INSPECTION: Yes tachypneic, Yes respiratory distress and Yes labored AUSCULTATION: rales Cardio: COMMON NORMALS: regular rhythm and No murmurs present (Cardio) RATE: tachycardic RHYTHM: regular rhythm GI: COMMON NORMALS: Normal to inspection, nondistended, normoactive bowel sounds present, Soft to palpation, non-tender and no masses PALPATION: Yes Soft to palpation Extremity: COMMON NORMALS: normal to inspection and full ROM Neuro: COMMON NORMALS: moves all extremities and no focal motor deficits; negative for patient oriented x3 SENSORIUM/ORIENTATION: Yes lethargic Psych: COMMON NORMALS: cooperative; negative for mental status grossly normal Skin: COMMON NORMALS: no rashes or lesions noted and no wounds GENERAL SKIN EXAM: no rashes or lesions noted Course Vital Signs: Vital signs: Vital Signs Pulse Rate 115 H 03/04/22 23:29 Respiratory Rate 18 03/04/22 23:21 Blood Pressure 105/59 03/04/22 23:21 Pulse Oximetry 93 03/04/22 23:29 [facility] - General Adult Medical Decision Making Patient presents with aspiration pneumonia along with septic shock likely from the pneumonia. His blood pressure is improved here with IV fluids pressure now is 96/68. Patient is doing well on BiPAP as well pulse ox is 99%. I had a long discussion with patient's who is power of deputy commonwealth's attorney she states they had been considering comfort care but at this time would like us to treat him. She does not wanting any aggressive treatment. She said no intubation no CPR and does not want him to have central line or pressors. We will treat with antibiotics and IV fluids at this time and admit to the medical floor and reassess. Lab Data : 03/04/22 23:32 03/04/22: Laboratory Results WBC 14.3 10^3/uL (4.0-10.0) H 03/04/22: RBC 4.35 10^6/uL (4.1-5.3) 03/04/22: Hgb 13.4 g/dL (11.7-16.6) 03/04/22: Hct 42.0 % (42.0-52.0) 03/04/22: MCV 96.6 fl (80-94) H 03/04/22: MCH 30.8 pg (28.0-34.0) 03/04/22: MCHC 31.9 g/dL (30.0-36.0) 03/04/22: RDW 13.8 % (12.1-15.1) 03/04/22: Plt Count 245 10^3/cmm (130-400) 03/04/22: MPV 10.4 fL (7.4-10.4) 03/04/22: Neut % (Auto) 91.5 % 03/04/22: Lymph % (Auto) 2.8 % 03/04/22: Esmeralda % (Auto) 3.8 % 03/04/22: Eos % (Auto) 1.2 % 03/04/22 Baso % (Auto) 0.4 % 03/04/22 Neut # (Auto) 13.08 10^3/uL (1.8-7.7) H 03/04/22: Lymph # (Auto) 0.4 10^3/uL (0.8-4.8) L 03/04/22: Esmeralda # (Auto) 0.5 10^3/uL (0.2-0.9) 03/04/22 Eos # (Auto) 0.2 10^3/uL (0.0-0.8) 03/04/22: Baso # (Auto) 0.1 10^3/uL (0.0-0.1) 03/04/22 Nucleated RBC % (auto) 0 % 04/10/22 23:32 Nucleated RBCs # 0.0 /100WBC 03/04/22 23:32 PT 16.80 SECONDS (12.1-14.9) H 03/05/22 00:06 INR 1.33 (0.8-1.2) H 03/05/22 00:06 Specimen Type Arterial 03/04/22 23:22 Sample Site Radial, left 03/04/22 23:22 ABG pH 7.35 (7.35-7.45) 03/04/22 23:22 ABG pCO2 38.5 mmHg (35-45) 03/04/22 23:22 ABG pO2 64.9 mmHg (80.0-100.0) L 03/04/22 23:22 ABG HCO3 21.3 mmol/L (22-26) L 03/04/22 23:22 ABG Base Excess -3.9 mmol/L (-2.0-2.0) L 03/04/22 23:22 Eros Test Pos 03/04/22 23:22 Hematocrit 43.6 % (42-52) 03/04/22 23:22 O2 Delivery Device Bipap 03/04/22 23:22 FiO2 100.0 % 03/04/22 23:22 Computer Repairer ID ellpe 03/04/22 23:22 Sodium 142 mmol/L (136-145) 03/04/22 23:32 Potassium 4.2 mmol/L (3.5-5.1) 03/04/22 23:32 Chloride 109 mmol/L (98-107) H 03/04/22 23:32 Carbon Dioxide 18 mmol/L (22-29) L 03/04/22 23:32 Anion Gap 19.2 (5-19) H 03/04/22 23:32 BUN 16 mg/dL (8-23) 03/04/22 23:32 Creatinine 0.9 mg/dL (0.7-1.2) 03/04/22 23:32 GFR Calculation Not Reportable 03/04/22 23:32 Glucose 395 mg/dL (65-115) H 03/04/22 23:32 Calculated Osmolality 312 mOsm/kg (285-295) H 03/04/22 23:32 Lactic Acid 4.2 mmol/L (0.5-2.2) H* 03/04/22 23:32 Calcium 8.2 mg/dL (8.5-10.5) L 03/04/22 23:32 Total Bilirubin 1.1 mg/dL (0.15-1.2) 03/04/22 23:32 AST 9 U/L (0-40) 03/04/22 23:32 ALT 6 U/L (0-41) 03/04/22 23:32 Alkaline Phosphatase 115 IU/L (40-130) 03/04/22 23:32 Troponin T Baseline 58 ng/L (0-15) H 03/04/22 23:32 NT-Pro-B Natriuret Pep 1215 pg/mL (0-450) H 03/04/22 23:32 Total Protein 5.3 g/dL (6.6-8.7) L 03/04/22 23:32 Albumin 2.1 g/dL (3.5-5.2) L 03/04/22 23:32 Globulin 3.2 g/dL (1.3-4.6) 03/04/22 23:32 Lipase 14 U/L (13-60) 03/04/22 23:32 EKG Data EKG 1: I personally reviewed and interpreted this EKG as follows: EKG interpretation date: 03/04/22 EKG interpretation time: 23:29 Interpretation: sinus tach hr [address] or t wave abnormalities qrs 100 qtc 416 Critical Care Time Critical Care Time: Critical Care Time: Yes Total Critical Care Time: 45 Attestation: The high probability of a clinically significant, sudden or life threatening deterioration of the patient's Pulmonary system(s) required my full and direct attention, intervention and personal management. The critical care time is as shown. This time is in addition to time spent performing any reported procedures but includes the following: [x] Data and vital sign review and interpretation [x] Patient assessment, examination and intervention [x] Documentation [x] Medication orders and management Discharge Plan Discharge Patient Disposition: Admitted As Inpatient Clinical Impression: Septic shock Aspiration pneumonia Qualifiers: Aspiration pneumonia type: unspecified Laterality: bilateral Lung location: unspecified part of lung Qualified Code(s): J69.0 - Pneumonitis due to inhalation of food and vomit Condition: Stable Coding Level of Care Code ED Cutting 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
[2022-03-05] VITALS (27 sets, daily range): BP systolic 85–131; BP diastolic 50–72; PULSE 95–121; RESP 24–49; TEMP 36.3–36.8; O2SAT 91–98; BMI 21.4
[2022-03-05 00:04] LABS: Lactic Sepsis W/Reflex 4.2 mmol/L (0.5-2.2); Troponin(5th) Baseline 58 ng/L (0-15)
[2022-03-05] MEDS: piperacillin-tazobactam 3.375 GM in sodium chloride 0.9% (plus) 50 ML IV ×4 (00:09→21:10)
[2022-03-05] MEDS: sodium chloride 0.9% 1,000 ML 999 ML IV (00:09)
[2022-03-05] MEDS: vancomycin 1,000 MG in sodium chloride 0.9% 250 ML 250 MG IV (00:09)
[2022-03-05 00:12] LABS: Reflex Lactate Order REFLEX LACTIC ORDERD
[2022-03-05 00:17] LABS: Alanine Aminotransferase 6 U/L (0-41); Albumin Level 2.1 g/dL (3.5-5.2); Alkaline Phosphatase 115 IU/L (40-130); Anion Gap 19.2 (5-19); Aspartate Amino Transferase 9 U/L (0-40); Blood Urea Nitrogen 16 mg/dL (8-23); Calcium 8.2 mg/dL (8.5-10.5); Carbon Dioxide 18 mmol/L (22-29); Chloride 109 mmol/L (98-107); Globulin 3.2 g/dL (1.3-4.6); Glucose 395 mg/dL (65-115); Lipase 14 U/L (13-60); NT Pro B Type Natriuretic Pept 1215 pg/mL (0-450); Osmolality Calculated 312 mOsm/kg (285-295); Potassium 4.2 mmol/L (3.5-5.1); Sodium 142 mmol/L (136-145); Total Bilirubin 1.1 mg/dL (0.15-1.2); Total Protein 5.3 g/dL (6.6-8.7)
[2022-03-05 00:24] LABS: INR 1.33 (0.8-1.2)
--- NOTE | 2022-03-05 00:55 | ECG_ITS ---
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 Measurements Intervals [place] Rate: 116 P: 58 [place]: 162 QRS: -75 QRSD: 100 T: 75 QT: 347 QTc: 484 Interpretive Statements SINUS TACHYCARDIA WITH OCCASIONAL SUPRAVENTRICULAR PREMATURE COMPLEXES POSSIBLE ANTERIOR MYOCARDIAL INFARCTION , OF INDETERMINATE AGE [30 ms Q WAVE IN V3/V4, OR R < 0.2 mV IN V4] INFERIOR MYOCARDIAL INFARCTION , PROBABLY OLD [40+ ms Q WAVE AND/OR ST/T ABNORMALITY IN II/aVF] INTERPRETATION BASED ON A DEFAULT AGE OF 40 YEARS Compared to ECG 01/22/2022 10:57:24 Sinus rhythm no longer present Incomplete right bundle-branch block no longer present Left anterior fascicular block no longer present Myocardial infarct finding still present Electronically Signed On 03-05-2022 22:48:57 CDT by Rad Joseph M.D. [id number]
--- NOTE | 2022-03-05 00:58 | P.HP_ITS ---
Providers/Chief Complaint Primary Care Provider: Semaj Lockwood MD Chief Complaint: AMS/LOW O2 History of Present Illness Patient is an 86-year-old male who was transferred from the assisted due to hypoxia. Unfortunately at the time of my encounter with the patient, he is in moderate respiratory distress with BiPAP mask on and he is encephalopathic presumably due to his hypoxia. Because of this I am unable to obtain further history of present illness and I am unable to obtain past medical history aside from what is available in the chart. Patient is not accompanied by any family or friends. He presents for further evaluation Review of Systems General: Reports: 10 or more systems reviewed and unremarkable except in HPI and below Medications/Allergies Home Medications Medication Instructions Recorded Confirmed Last Taken Type docusate sodium 100 mg capsule 100 mg PO QAM cap 12/01/19 03/02/22 01/21/22 History (Colace) brimonidine 0.2 %-timolol 0.5 % 1 drop OPHTHALMIC (EYE) BID 07/20/20 03/02/22 01/21/22 History eye drops (Combigan) cetirizine 10 mg capsule 10 mg PO QAM 07/20/20 03/02/22 01/21/22 History latanoprost 0.005 % eye drops 1 drop OPHTHALMIC (EYE) BEDTIME 07/20/20 03/02/22 01/21/22 History Diabetic shoes with 3 pairs of #1 ea 04/04/21 03/02/22 Unknown Rx inserts wheelchair #1 ea 08/09/21 03/02/22 Unknown Rx blood sugar diagnostic (True #100 each 10/27/21 03/02/22 Unknown Rx Metrix Glucose Test Strip) carvedilol 3.125 mg tablet (Coreg) 3.125 mg PO BEDTIME #90 tab 10/27/21 03/02/22 01/21/22 Rx ergocalciferol (vitamin D2) 1,250 1,250 mcg PO Q7D #4 cap 10/27/21 03/02/22 Unknown Rx mcg (50,000 unit) capsule insulin detemir U-100 100 unit/mL See Rx Instructions SUBCUT BID #45 10/27/21 03/02/22 01/22/22 07:00 Rx (3 mL) subcutaneous pen (Levemir ml 50 units FlexTouch U-100 Insulin) sertraline 50 mg tablet (Zoloft) 25 mg PO BID #90 tab 10/27/21 03/02/22 01/21/22 Rx tamsulosin 0.4 mg capsule (Flomax) 0.4 mg PO BEDTIME #90 cap 10/27/21 03/02/22 01/21/22 Rx quetiapine 25 mg tablet (Seroquel) 25 mg PO BEDTIME #30 tab 12/30/21 03/02/22 01/21/22 Rx warfarin 5 mg tablet See Rx Instructions .ROUTE .COMPLEX 01/22/22 03/02/22 01/21/22 History Allergies Allergy/AdvReac Type Severity Reaction Status Date / Time MONICA Inhibitors AdvReac Unknown COUGH Verified 03/02/22 08:51 atorvastatin [From Lipitor] AdvReac Unknown ITCHING Verified 03/02/22 08:51 PFSH Acute PFSH: Medical History Anticoagulant long-term use Benign essential hypertension with target blood pressure below 140/90 Deep vein thrombosis (DVT) History of humerus fracture 08/04/2018 Dr. Rubio, again September 2019 in [place], [place] Phimosis Vitamin D deficiency Surgical History History of cholecystectomy 12/30/17 History of circumcision July 2020 History of colonoscopy History of corneal transplant 2012 Right Presence of cornea transplant RIGHT EYE: 2011 S/P trigger finger release LEFT RING FINGER 12/03/14 Family History Sister Diabetes Family/Other Dementia Social History Second hand smoke exposure: No Smoking risk assessment/counseling performed?: No Alcohol intake: never Desire information about alcohol rehabilitation?: No Counseling given: No Desire information about substance/drug rehabilitation?: No Counseling given: No Adopted: No Caregiver/support person: No Lives independently: Yes Household members: spouse Housing: House Marital status: Number of children: 1 service: No Current occupational status: retired Current occupational exposures/hazards: No Pets and animals: Yes Pets & animals: dog(s) History of recent travel: No Current gender identity: Female Vitals/I&O/Wt Last Vital Signs Pulse 115 H 04/10/22 23:29 Resp 18 03/04/22 23:21 BP 105/59 03/04/22 23:21 Pulse Ox 93 03/04/22 23:29 Physical Exam Narrative: General: -Alert -No acute distress -No dyspnea -No tachypnea Head: -Atraumatic -Normocephalic Eyes: -Pupils equally round and reactive to light and accommodation -Extraocular muscles intact Neurological: -Cranial nerves II-XII intact Neck: -No jugular venous distention -No thyromegaly -No cervical lymphadenopathy Heart: -Regular rate -Regular rhythm -No murmurs -No gallops -No rubs Lungs: -No wheeze -No rhonchi -No rales ? Abdomen: -Normal bowel sounds in all four quadrants -No rebound -No guarding -No tenderness Extremities: -2/4 pulse in all four extremities -No clubbing -No cyanosis -No edema -No calf tenderness present bilaterally -Negative Gordy?s sign bilaterally Musculoskeletal: -5/5 bilateral upper extremity strength -5/5 bilateral lower extremity strength -Sensorium of bilateral upper extremities are equal and intact -Sensorium of bilateral lower extremities are equal and intact ? Additional Details / Additional Findings / Exceptions / Miscellaneous: Data : 03/04/22 23:32 03/04/22 23:32 Micro: Microbiology 03/04/22 23:32 Blood Culture - Preliminary Blood SPECIMEN COLLECTED 03/04/22 23:15 Blood Culture - Preliminary Blood SPECIMEN COLLECTED A&P Assessment and plan (1) Aspiration pneumonia: Status: Acute Qualifiers: Aspiration pneumonia type: unspecified Laterality: bilateral Lung location: unspecified part of lung Qualified Code(s): J69.0 - Pneumonitis due to inhalation of food and vomit Plan Suspected aspiration pneumonia. Radiology report pending at the time of admission. Pulmonary embolism cannot be excluded given his history of DVT and subtherapeutic INR. Blood culture ?2 drawn the emergency department pending. Vancomycin 500 Mill grams IV every 12 hours to be dosed by pharmacy plus Zosyn 3.375 g IV every 8 hours plus DuoNeb every 4 hours. Patient currently on BiPAP to be managed by respiratory therapy Neuropathy History of vitamin D deficiency Constipation Seasonal allergies Glaucoma Elevated troponin. Likely sequelae of hypoxemia. Will monitor patient on telemetry and checks her cardiac enzymes. Recheck EKG on the morning of February Macrocytosis. Check TSH, free T4, B12, foot level History of DVT. Lovenox 55 mg subcutaneous leak every 12 hours plus Coumadin per patient's home dose and frequency. Will monitor PT/INR periodically BPH Depression. Zoloft 25 Mill grams by mouth twice a day Diabetes. Will check fasting glucose every before meals and at bedtime and provide insulin sliding scale plus Levemir 45 units subcu tensely daily and 35 units subcu tensely daily at bedtime Hypertension History of CVA Dementia. Echo 25 Mill grams by mouth daily at bedtime. Turn patient every 2 hours DVT Proflex is. Lovenox 55 Mill grams subcutaneously every 12 hours plus Coumadin per home dose and frequency. Will monitor PT/INR periodically Attestations Medical Necessity Statement*: Anticipate length of stay is greater than 2 midnights forSuspected aspiration pneumonia Coding Level of Care Code Acute Senior Ui Developer for [facility] Diagnoses Aspiration pneumonia J69.0 Aspiration pneumonia type: unspecified Laterality: bilateral Lung location: unspecified part of lung
--- NOTE | 2022-03-05 01:23 | ECG_ITS ---
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 Measurements Intervals [place] Rate: 108 P: 57 [place]: 174 QRS: -78 QRSD: 94 T: 30 QT: 357 QTc: 479 Interpretive Statements SINUS TACHYCARDIA WITH OCCASIONAL SUPRAVENTRICULAR PREMATURE COMPLEXES POSSIBLE ANTERIOR MYOCARDIAL INFARCTION , PROBABLY OLD [30 ms Q WAVE IN V3/V4, OR R < 0.2 mV IN V4] INFERIOR MYOCARDIAL INFARCTION , PROBABLY OLD [40+ ms Q WAVE AND/OR ST/T ABNORMALITY IN II/aVF] Compared to ECG 03/04/2022 23:51:38 No significant changes Electronically Signed On 03-05-2022 23:04:51 CDT by Rad Joseph M.D. [id number]
[2022-03-05] MEDS: enoxaparin 60 mg/0.6 mL Syringe 55 MG SUBCUT ×2 (02:14→12:37)
[2022-03-05 02:15] LABS: Troponin 5 2HR 104.7 ng/L (0-15); Troponin 5 2HR Delta 46.7 ABS# (0-10)
[2022-03-05 02:52] LABS: Folate Level 4.3 ng/mL (4.5-32.2)
--- NOTE | 2022-03-05 02:55 | ECG_ITS ---
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 Measurements Intervals [place] Rate: 112 P: 65 MO: 170 QRS: -73 QRSD: 97 T: 70 QT: 342 QTc: 467 Interpretive Statements SINUS TACHYCARDIA WITH OCCASIONAL SUPRAVENTRICULAR PREMATURE COMPLEXES LEFT AXIS DEVIATION [QRS AXIS < -30] LOW QRS VOLTAGE IN PRECORDIAL LEADS [QRS DEFLECTION < 1.0 mV IN CHEST LEADS] INCOMPLETE RIGHT BUNDLE BRANCH BLOCK [90+ ms QRS DURATION, TERMINAL R IN V1/V2, 40+ ms S IN I/aVL/V4/V5/V6] POSSIBLE ANTERIOR MYOCARDIAL INFARCTION , OF INDETERMINATE AGE [30 ms Q WAVE IN V3/V4, OR R < 0.2 mV IN V4] Compared to ECG 03/05/2022 01:27:12 Left-axis deviation now present Low QRS voltage now present Incomplete right bundle-branch block now present Myocardial infarct finding still present Electronically Signed On 03-05-2022 23:05:43 CDT by Rad Joseph M.D. [id number]
[2022-03-05 03:02] LABS: Thyroid Stimulating Hormone 0.75 uIU/mL (0.27-4.20); Vitamin B12 496 pg/mL (232-1245)
[2022-03-05 03:38] LABS: Free T4 Free Thyroxine 1.23 ng/dL (0.82-1.77)
[2022-03-05] MEDS: ipratropium-albuterol 3 mL Neb INHALATION ×6 (03:58→23:05)
--- NOTE | 2022-03-05 05:23 | ECG_ITS ---
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 Measurements Intervals [place] Rate: 116 P: 58 OR: 162 QRS: -75 QRSD: 100 T: 75 QT: 347 QTc: 484 Interpretive Statements SINUS TACHYCARDIA WITH OCCASIONAL SUPRAVENTRICULAR PREMATURE COMPLEXES POSSIBLE ANTERIOR MYOCARDIAL INFARCTION , OF INDETERMINATE AGE [30 ms Q WAVE IN V3/V4, OR R < 0.2 mV IN V4] INFERIOR MYOCARDIAL INFARCTION , PROBABLY OLD [40+ ms Q WAVE AND/OR ST/T ABNORMALITY IN II/aVF] INTERPRETATION BASED ON A DEFAULT AGE OF 40 YEARS Compared to ECG 01/22/2022 10:57:24 Sinus rhythm no longer present Incomplete right bundle-branch block no longer present Left anterior fascicular block no longer present Myocardial infarct finding still present Electronically Signed On 03-05-2022 23:04:24 CDT by Rad Joseph M.D. [id number]
[2022-03-05 05:45] LABS: Troponin 5 6HR 139.8 ng/L (0-15)
[2022-03-05 05:46] LABS: Lactic Acid level (Lactate) 4.6 mmol/L (0.5-2.2); Troponin 5 6HR Delta 81.8 ng/L (0-12)
[2022-03-05 07:12] LABS: Glucose Point of Care 320 mg/dL (70-110)
[2022-03-05] MEDS: insulin lispro 100 unit/1 mL SUBCUT ×2 (09:37→12:27)
--- NOTE | 2022-03-05 10:43 | PC.CHAP ---
Pastoral Care Encounter/Spiritual Assessment Type of Contact [] Declined director outcomes visit [] Patient/Family/Request visit [] Outpatient visit [] Follow-up visit [] Physician referral [] Code/Alert [x] Routine visit [] Staff referral [] Actively dying [] Patient sleeping [] Family support [] [] Out of room [] Palliative care [] [] Receiving care in room [] Pre-surgical visit [] Trauma [] Long length of stay [] ICU visit [] Other: Relational/Emotional Strength [] Patient feels connected with others/family/visitors/staff [] Distress [] Loneliness/isolation [] Abandonment Spirituality of Patient [] Person of Princess [] Attends Shinto of their Princess [] Believes in Prayer [] Reads Bible or Taoist materials [] There are Spiritual issues to be addressed Medical Equipment Sales Interventions [] Prayer [] Active listening [] Non-anxious presence [] Spiritual/emotional support [] Crisis/trauma care [] Spiritual counseling [] Bereavement support [] Provided bereavement packet [] Provided Bible/devotional materials [] Provided toy/stuffed animal, coloring book to patient or family member [] Provided Communion [] Anointing/[place] [] Salvation [] Completed spiritual assessment [] Other: Impact on Illness or Injury [] Angry [] Fearful [] Anxious [] Often cries [] Exhaustion [] Unable to work [] Unable to attend samaritan [] Unable to walk/stand [] Unable to read [] Unable to drive [] Unable to eat/drink [] Unable to sleep [] Unable to be with family [] Patient intubated [] Other: Summary Time spent with patient
[2022-03-05 11:47] LABS: Glucose Point of Care 312 mg/dL (70-110)
[2022-03-05 16:01] LABS: Bacillus cereus group Not Detected (NOT DETECT); Bacillus subtillis group Not Detected (NOT DETECT); Corynebacterium Not Detected (NOT DETECT); Cutibacterium acnes (P.acnes) Not Detected (NOT DETECT); Enterococcus Not Detected (NOT DETECT); Enterococcus faecalis Not Detected (NOT DETECT); Enterococcus faecium Not Detected (NOT DETECT); Lactobacillus species Not Detected (NOT DETECT); Listeria Not Detected (NOT DETECT); Listeria monocytogenes Not Detected (NOT DETECT); Micrococcus Not Detected (NOT DETECT); Pan Candida Not Detected (NOT DETECT); Pan Gram-Negative Not Detected (NOT DETECT); Staphylococcus epidermidis Not Detected (NOT DETECT); Staphylococcus lugdunensis Not Detected (NOT DETECT); Staphylococcus species Detected (NOT DETECT); Streptococcus agalactiae Not Detected (NOT DETECT); Streptococcus anginosus group Not Detected (NOT DETECT); Streptococcus pneumoniae Not Detected (NOT DETECT); Streptococcus pyogenes Not Detected (NOT DETECT); Streptococcus species Not Detected (NOT DETECT); mecA Not Detected (NOT DETECT); mecC Not Detected (NOT DETECT)
--- NOTE | 2022-03-05 17:05 | PC.NURSE ---
Shift SUmmary: Uneventful shift. Patient has rested in bed throughou tthe day. Initially on Bipap at 80%, but currently on 7L NC. Estimated patient voided 150mL. Patient was voiding into brief so it was difficult to measure accurately. Clemente started near end of shift. Patient is able to occasionally tell us his name, but not reliably so. Not oriented to place, time, or situation. THe patient's has been updated. According to her, his baseline is variable and ranges between confused to alert. CUrrent mental staus is not his baseline at the skilled nursing.
[2022-03-05 17:23] LABS: Glucose Point of Care 103 mg/dL (70-110)
[2022-03-05 18:14] LABS: Add Urine Microscopic? YES; Bilirubin Urine 1+ (Negative); Blood Urine 2+ (Negative); Glucose Urine UA 2+ (Normal); Ketones Urine 1+ (Negative); Leukocyte Esterase Urine Negative (Negative); Nitrate Urine Negative (Negative); Protein Urine 1+ (Negative); Urine Appearance SL Hazy (CLEAR); Urine Color Dark Yellow (Yellow); Urobilinogen Urine 4 mg/dL (Negative); pH Urine 5 (5-7)
[2022-03-05 18:15] LABS: Add Urine Culture? Yes; Bacteria Urine 3+ /hpf; RBC Urine 0-4 /hpf (0-2); WBC Urine 0-4 /hpf (0-5)
[2022-03-05] MEDS: vancomycin 1,250 MG/250 ML PIGGYBACK 250 MG IV (18:22)
--- NOTE | 2022-03-05 22:37 | PC.NURSE ---
CONTINUOS PULSE OX ALARM SOUNDING AT THIS TIME. THIS RN ENTERED PATIENT ROOM, PATIENT APPEARED TO HAVE TAKEN OFF NASAL CANULA AND WAS AT 78 %. OXYGEN PUT ON PATIENT AT THIS TIME, OXYGEN SATURATIONS AT 91% ON 8L VIA NASAL CANULA.
[2022-03-06] VITALS: BP 124/64; PULSE 96; RESP 39; TEMP 36.5; O2SAT 90
[2022-03-06 00:30] VITALS: PULSE 79; O2SAT 94
--- NOTE | 2022-03-06 00:46 | PC.NURSE ---
PATIENT O2 ALARM SOUNDING, WHEN THIS RN ENTERED PATIENTS ROOM SPO2 NOTED TO BE IN THE LOWER 80 ON 8L NASAL CANULA. NON REBREATHER PUT ON PATIENT AT 15L AND RESPIRATORY CALLED TO BEDSIDE. PATIENT REMAINS IN THE UPPER TO MID 70S ON SPO2 MONITOR. DR LYNNE MADE AWARE.
[2022-03-06] MEDS: morphine 4 mg/mL SDV 1 mL 1 MG IVP (01:36)
--- NOTE | 2022-03-06 02:04 | P.DS_ITS ---
Discharge Providers Date of Admission: 03/05/22 00:30 Date of Discharge: March 06, 2022 Attending Provider at Admission: Michelle Vigil DO Attending Provider at Discharge: Marcin Julian MD Primary Care Provider: Semaj Lockwood MD Diagnoses at Discharge Discharge Diagnosis (1) Aspiration pneumonia: Status: Acute Qualifiers: Aspiration pneumonia type: unspecified Laterality: bilateral Lung location: unspecified part of lung Qualified Code(s): J69.0 - Pneumonitis due to inhalation of food and vomit Other Information Additional DC diagnoses/information: at 1:48 AM on March 06, 2022 due to respiratory failure due to aspiration pneumonia Reason for Visit Reason for Visit: AMS/LOW O2 Brief History: Patient is an 86-year-old male who was transferred from the skilled nursing due to hypoxia.? Unfortunately at the time of my encounter with the patient, he is in moderate respiratory distress with BiPAP mask on and he is encephalopathic presumably due to his hypoxia.? Because of this I am unable to obtain further history of present illness and I am unable to obtain past medical history aside from what is available in the chart.? Patient is not accompanied by any family or friends.? He presents for further evaluation Hospital Course Hospital Course Patient is an 86-year-old male who was transferred from the skilled nursing due to hypoxia.? Unfortunately at the time of my encounter with the patient, he is in moderate respiratory distress with BiPAP mask on and he is encephalopathic presumably due to his hypoxia.? Because of this I am unable to obtain further history of present illness and I am unable to obtain past medical history aside from what is available in the chart.? Patient is not accompanied by any family or friends.? He presents for further evaluation Discharge diagnosis: meant at 1:48 AM on March 06, 2022 due to respiratory failure due to aspiration pneumonia Secondary diagnosis: Suspected aspiration pneumonia Neuropathy History of vitamin D deficiency Constipation Seasonal allergies Glaucoma Elevated troponin, likely sequelae of hypoxemia. Macrocytosis History of DVT BPH Depression Diabetes Hypertension History of CVA Dementia Physical Exam Narrative: General: -Alert -No acute distress -No dyspnea -No tachypnea Head: -Atraumatic -Normocephalic Eyes: -Pupils equally round and reactive to light and accommodation -Extraocular muscles intact Neurological: -Cranial nerves II-XII intact Neck: -No jugular venous distention -No thyromegaly -No cervical lymphadenopathy Heart: -Regular rate -Regular rhythm -No murmurs -No gallops -No rubs Lungs: -No wheeze -No rhonchi -No rales ? Abdomen: -Normal bowel sounds in all four quadrants -No rebound -No guarding -No tenderness Extremities: -2/4 pulse in all four extremities -No clubbing -No cyanosis -No edema -No calf tenderness present bilaterally -Negative Gordy?s sign bilaterally Musculoskeletal: -5/5 bilateral upper extremity strength -5/5 bilateral lower extremity strength -Sensorium of bilateral upper extremities are equal and intact -Sensorium of bilateral lower extremities are equal and intact ? Additional Details / Additional Findings / Exceptions / Miscellaneous: Urinary Catheter Management: Clemente: Cath Placed During This Visit: yes Reason for Continuing Indwelling Catheter: Other Urinary Catheter Date of Insertion: 03/05/22 Urinary Catheter Time of Insertion: 17:11 Discharge Data Studies Completed and Pending Completed Studies During Hospitalization Category Date Time Status XR chest 1V portable [id number] Urgent Exams 03/04/22 23:22 Completed Pending at discharge Category Date Time Status Blood Culture Stat Lab 03/04/22 23:32 Results Urine Culture Stat Lab 03/04/22 17:15 Stop Req Radiology Impressions Chest X-Ray 03/04/22 23:22 IMPRESSION: 1. Patchy bilateral airspace infiltrates greatest in the right mid lung field and left lower lobe. 2. Small right pleural effusion. 3. Cardiomegaly. Laboratory Results WBC 14.3 10^3/uL (4.0-10.0) H 03/04/22 23:32 RBC 4.35 10^6/uL (4.1-5.3) 03/04/22 23:32 Hgb 13.4 g/dL (11.7-16.6) 03/04/22 23:32 Hct 42.0 % (42.0-52.0) 03/04/22 23:32 MCV 96.6 fl (80-94) H 03/04/22 23:32 MCH 30.8 pg (28.0-34.0) 03/04/22 23:32 MCHC 31.9 g/dL (30.0-36.0) 03/04/22 23:32 RDW 13.8 % (12.1-15.1) 03/04/22 23:32 Plt Count 245 10^3/cmm (130-400) 03/04/22 23: MPV 10.4 fL (7.4-10.4) 03/04/22 23:32 Neut % (Auto) 91.5 % 03/04/22: Lymph % (Auto) 2.8 % 03/04/22: [place] % (Auto) 3.8 % 03/04/22: Eos % (Auto) 1.2 % 03/04/22: Baso % (Auto) 0.4 % 03/04/22: Neut # (Auto) 13.08 10^3/uL (1.8-7.7) H 03/04/22: Lymph # (Auto) 0.4 10^3/uL (0.8-4.8) L 03/04/22: [place] # (Auto) 0.5 10^3/uL (0.2-0.9) 03/04/22: Eos # (Auto) 0.2 10^3/uL (0.0-0.8) 03/04/22: Baso # (Auto) 0.1 10^3/uL (0.0-0.1) 03/04/22: Nucleated RBC % (auto) 0 % 03/04/22: Nucleated RBCs # 0.0 /100WBC 03/04/22: PT 16.80 SECONDS (12.1-14.9) H 03/05/22 00:06 INR 1.33 (0.8-1.2) H 03/05/22 00:06 Specimen Type Arterial 03/04/22 23: Sample Site Radial, left 03/04/22: ABG pH 7.35 (7.35-7.45) 03/04/22: ABG pCO2 38.5 mmHg (35-45) 03/04/22: ABG pO2 64.9 mmHg (80.0-100.0) L 03/04/22: ABG HCO3 21.3 mmol/L (22-26) L 03/04/22: ABG Base Excess -3.9 mmol/L (-2.0-2.0) L 04/10/22 23:22 Eros Test Pos 03/04/22 23:22 Hematocrit 43.6 % (42-52) 03/04/22 23:22 O2 Delivery Device Bipap 03/04/22 23:22 FiO2 100.0 % 03/04/22 23:22 Delimber Operator ID jose 03/04/22 23:22 Sodium 142 mmol/L (136-145) 03/04/22 23:32 Potassium 4.2 mmol/L (3.5-5.1) 03/04/22 23:32 Chloride 109 mmol/L (98-107) H 03/04/22 23:32 Carbon Dioxide 18 mmol/L (22-29) L 03/04/22 23:32 Anion Gap 19.2 (5-19) H 03/04/22 23:32 BUN 16 mg/dL (8-23) 03/04/22 23:32 Creatinine 0.9 mg/dL (0.7-1.2) 03/04/22 23:32 GFR Calculation Not Reportable 03/04/22 23:32 Glucose 395 mg/dL (65-115) H 03/04/22 23:32 POC Glucose 103 mg/dL (70-110) 03/05/22 17:13 Calculated Osmolality 312 mOsm/kg (285-295) H 03/04/22 23:32 Lactic Acid 4.2 mmol/L (0.5-2.2) H* 03/04/22 23:32 Lactic Acid (Sepsis) 4.6 mmol/L (0.5-2.2) H* 03/05/22 04:40 Calcium 8.2 mg/dL (8.5-10.5) L 03/04/22 23:32 Total Bilirubin 1.1 mg/dL (0.15-1.2) 03/04/22 23:32 AST 9 U/L (0-40) 03/04/22 23:32 ALT 6 U/L (0-41) 03/04/22 23:32 Alkaline Phosphatase 115 IU/L (40-130) 03/04/22 23:32 Troponin T Baseline 58 ng/L (0-15) H 03/04/22 23:32 Troponin T 120 Minute 104.7 ng/L (0-15) H 03/05/22 01:30 Delta Troponin T 46.7 ABS# (0-10) H* 03/05/22 01:30 Troponin T Hi Sens 6Hr 139.8 ng/L (0-15) H 03/05/22 04:40 Troponin T Hi Sens 6Hr Delta 81.8 ng/L (0-12) H* 03/05/22 04:40 NT-Pro-B Natriuret Pep 1215 pg/mL (0-450) H 03/04/22 23:32 Total Protein 5.3 g/dL (6.6-8.7) L 03/04/22 23:32 Albumin 2.1 g/dL (3.5-5.2) L 03/04/22 23:32 Globulin 3.2 g/dL (1.3-4.6) 03/04/22 23:32 Lipase 14 U/L (13-60) 03/04/22 23:32 Vitamin B12 496 pg/mL (232-1245) 03/04/22 23:32 Folate 4.3 ng/mL (4.5-32.2) L 03/04/22 23:32 TSH 0.75 uIU/mL (0.27-4.20) 03/04/22 23:32 Free T4 1.23 ng/dL (0.82-1.77) 03/04/22 23:32 Urine Color Dark yellow (Yellow) 03/04/22 17:15 Urine Appearance Sl hazy (CLEAR) 03/04/22 17:15 Urine pH 5 (5-7) 03/04/22 17:15 Ur Specific [place] 1.020 (1.005-1.030) 03/04/22 17:15 Urine Protein 1+ (Negative) H 03/04/22 17:15 Urine Glucose (UA) 2+ (Normal) H 03/04/22 17:15 Urine Ketones 1+ (Negative) H 03/04/22 17:15 Urine Blood 2+ (Negative) H 03/04/22 17:15 Urine Nitrate Negative (Negative) 03/04/22 17:15 Urine Bilirubin 1+ (Negative) H 03/04/22 17:15 Urine Urobilinogen 4 mg/dL (Negative) H 03/04/22 17:15 Ur Leukocyte Esterase Negative (Negative) 03/04/22 17:15 Urine RBC 0-4 /hpf (0-2) H 03/04/22 17:15 Urine WBC 0-4 /hpf (0-5) H 03/04/22 17:15 Ur Squamous Epith Cells 5-10 /hpf (0-5) H 03/04/22 17:15 Amorphous Sediment Not Reportable 03/04/22 17:15 Urine Bacteria 3+ /hpf (NONE) H 03/04/22 17:15 Vitals Last Vital Signs Temp 97.7 F 03/06/22 00:00 Pulse 79 03/06/22 00:30 Resp 39 H 03/06/22 00:00 BP 124/64 03/06/22 00:00 Pulse Ox 94 03/06/22 00:30 Discharge Plan Discharge Patient Disposition: Condition: Stable Prescriptions: No Action latanoprost 0.005 % drops 1 drop ophthalmic (eye) BEDTIME@20 0RF Combigan 0.2-0.5 % drops 1 drop ophthalmic (eye) BID@08,20 0RF Rx Instructions: right eye (DME) Diabetic shoes with 3 pairs of inserts See Rx Instructions .Route .MEDSUPPLY Qty: 1 0RF Rx Instructions: As directed by [employer] (DME) wheelchair See Rx Instructions .Route .MEDSUPPLY Qty: 1 0RF Rx Instructions: As directed (DME) True Metrix Glucose Test Strip Strip See Rx Instructions .ROUTE .MEDSUPPLY Qty: 100 5RF Rx Instructions: 3 times day as needed Coreg 3.125 mg tablet 3.125 mg PO BEDTIME Qty: 90 0RF Rx Instructions: must administer with a meal/food ergocalciferol (vitamin D2) 1,250 mcg (50,000 unit) capsule 1,250 mcg PO Q7D Qty: 4 2RF Rx Instructions: TAKE ON SATURDAY Flomax 0.4 mg capsule 0.4 mg PO BEDTIME Qty: 90 0RF Seroquel 25 mg tablet 25 mg PO BEDTIME Qty: 30 0RF sodium chloride 5 % drops 1 drp ophthalmic (eye) BID@08,20 0RF Rx Instructions: right eye sertraline 25 mg tablet 25 mg PO BEDTIME@20 0RF Levemir U-100 Insulin 100 unit/mL solution 20 unit SUBCUT BEDTIME@20 0RF Eliquis 2.5 mg Tablet 2.5 mg PO BID@08,20 0RF Referrals: Semaj Lockwood MD [Primary Care Provider] - Probable Cause of Probable cause of : (QFT) 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
--- NOTE | 2022-03-06 02:05 | PC.NURSE ---
PATIENT AT 0148. DOCTOR NOTIFIED AT 0152 AND UPPER LEATHER SORTER NOTIFIED. , ANNY, NOTIFIED BY DR. LYNNE.
--- NOTE | 2022-03-06 03:01 | PC.NURSE ---
HOME, [facility] IN [place], [place], CALLED AT THIS TIME.
[2022-03-06 07:57] LABS: Glucose Point of Care 76 mg/dL (70-110)
--- NOTE | 2022-03-06 12:11 | PM.DDS ---
Discharge Providers DDS Date of Admission: 03/05/22 00:30 Date Summary Completed: 03/07/22 Attending Provider at Admission: Michelle Vigil DO Time of : 01:48 Attending Provider at Discharge: Marcin Julian MD Primary Care Provider: Semaj Lockwood MD DS Diagnoses Hospital Diagnoses (1) Aspiration pneumonia: Qualifiers: Aspiration pneumonia type: unspecified Laterality: bilateral Lung location: unspecified part of lung Qualified Code(s): J69.0 - Pneumonitis due to inhalation of food and vomit Reason for Visit Reason for Visit AMS/LOW O2 Summary Date and Time of Date of : 03/06/22 Time of : 01:48 Summary Summary: 86-year-old male with past medical history of dvt, hypertension diabetes CVA , depression BPH, senior living resident was brought in for the management of hypoxia, patient was admitted for the management of acute hypoxic respiratory failure secondary to pneumonia, NSTEMI likely type II, altered mental status secondary to hypoxia, He was kept on BiPAP broad-spectrum antibiotic, conservative respiratory support measures , x-ray chest showed: Patchy bilateral airspace infiltrates greatest in the right mid lung field and left lower lobe. Small right pleural effusion. sinus tachycardia with PVCs , blood culture was positive for Staph aureus, kept on telemetry monitoring, given the fact that he was in severe respiratory distress and was having significant desaturation when he was off BiPAP, given his poor prognosis, and overall deterioration as per night physician family decided to make the patient comfort care.Patient on 03/06,at 1:48 a.m. Discharge Plan Discharge Patient Disposition: Condition: Stable Prescriptions: Discontinued latanoprost 0.005 % drops 1 drop ophthalmic (eye) BEDTIME@20 0RF Combigan 0.2-0.5 % drops 1 drop ophthalmic (eye) BID@08,20 0RF Rx Instructions: right eye (DME) Diabetic shoes with 3 pairs of inserts See Rx Instructions .Route .MEDSUPPLY Qty: 1 0RF Rx Instructions: As directed by [employer] (DME) wheelchair See Rx Instructions .Route .MEDSUPPLY Qty: 1 0RF Rx Instructions: As directed ([facility] [place]) True Metrix Glucose Test Strip Strip See Rx Instructions .ROUTE .MEDSUPPLY Qty: 100 5RF Rx Instructions: 3 times day as needed Coreg 3.125 mg tablet 3.125 mg PO BEDTIME Qty: 90 0RF Rx Instructions: must administer with a meal/food ergocalciferol (vitamin D2) 1,250 mcg (50,000 unit) capsule 1,250 mcg PO Q7D Qty: 4 2RF Rx Instructions: TAKE ON SATURDAY Flomax 0.4 mg capsule 0.4 mg PO BEDTIME Qty: 90 0RF Seroquel 25 mg tablet 25 mg PO BEDTIME Qty: 30 0RF sodium chloride 5 % drops 1 drp ophthalmic (eye) BID@08,20 0RF Rx Instructions: right eye sertraline 25 mg tablet 25 mg PO BEDTIME@20 0RF Levemir U-100 Insulin 100 unit/mL solution 20 unit SUBCUT BEDTIME@20 0RF Eliquis 2.5 mg Tablet 2.5 mg PO BID@08,20 0RF Referrals: Semaj Lockwood MD [Primary Care Provider] - Probable Cause of Probable cause of : (QFT) 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
== END 2022-03-06 01:48 | disposition expired | DRG 177 ==
LOC: ER 03-05 00:45 → MEDSURG 03-05 01:26
PROVIDERS: Admitting Provider Internal Medicine; Emergency Provider Emergency Medicine; PCP Internal Medicine; Visit Provider Internal Medicine
DX: J69.0 Pneumonitis due to inhalation of food and vomit (principal); I26.99 Other pulmonary embolism without acute cor pulmonale; J96.01 Acute respiratory failure with hypoxia; I21.A1 Myocardial infarction type 2; G93.1 Anoxic brain damage, not elsewhere classified; F03.90 Unspecified dementia, unspecified severity, without behavioral disturbance, psychotic disturbance, mood disturbance, and anxiety; I10 Essential (primary) hypertension; Z86.718 Personal history of other venous thrombosis and embolism; Z66 Do not resuscitate; G62.9 Polyneuropathy, unspecified; K59.00 Constipation, unspecified; H40.9 Unspecified glaucoma; F32.A Depression, unspecified; Z86.73 Personal history of transient ischemic attack (TIA), and cerebral infarction without residual deficits; N40.0 Benign prostatic hyperplasia without lower urinary tract symptoms; Z51.5 Encounter for palliative care; B95.61 Methicillin susceptible Staphylococcus aureus infection as the cause of diseases classified elsewhere
CPT/HCPCS: 36415; 36416; 36600; 51702; 71045; 80053; 81001; 82607; 82746; 82803; 82962; 83605; 83690; 83880; 84439; 84443; 84484; 85025; 85610; 87040; 87086; 87150; 87186; 87205; 93005; 94640; 94660; 94664; 96365; 96367; 96372; 99285; J1650; J1815; J2270; J2543; J3370; J7030; J7050